=== PATIENT | female | born 2000 | race Caucasian/White ===

== ENCOUNTER → 2021-02-25 | Outpatient (CLI) | payer BC, SELFPAY ==
[2021-02-25 14:32] VITALS: BMI 27.3
[2021-02-25 18:45] LABS: Chlamydia Trachomatis by PCR Negative (Negative); Neisserai gonorrhoeae by PCR Negative (Negative); Probe Check PASS; Sample Adequacy Control PASS; Specimen Processing Control PASS
== END | disposition home or self-care (01) ==
LOC: LABSPEC 16:31
PROVIDERS: PCP Pediatrics; Referring Provider Nurse Practitioner Women's Health; Visit Provider Nurse Practitioner Women's Health
DX: N93.0 Postcoital and contact bleeding (principal)
CPT/HCPCS: 87491; 87591

== ENCOUNTER → 2021-03-11 | Outpatient (CLI) | payer OTHER, SELFPAY ==
[2022-03-13 22:07] LABS: Chlamydia By Nucleic Acid AMP Negative (Negative)
[2022-03-13 23:00] LABS: Gonococcus By Nucleic Acid AMP Negative (Negative)
[2022-03-18 14:56] LABS: HPV Reflexed? NOT INDICATED
== END | disposition home or self-care (01) ==
LOC: LABSPEC 03-12 06:26
PROVIDERS: PCP Pediatrics; Referring Provider Nurse Practitioner Women's Health; Visit Provider Nurse Practitioner Women's Health
DX: Z11.3 Encounter for screening for infections with a predominantly sexual mode of transmission (principal); Z12.4 Encounter for screening for malignant neoplasm of cervix
CPT/HCPCS: 87491; 87591; 88175; G0145

== ENCOUNTER → 2025-07-19 | Outpatient (CLI) | payer OTHER, SELFPAY ==
--- OUTSIDE RECORDS SUMMARY | 2025-07-19 20:16 | XMS RPT_ITS | CCD ---
Author Organization [facility] [employer] Care Team Providers Care School Clerk Name Role Phone ROSALINDA THAPA Attending Unavailable REFERRED, SELF Referring Unavailable LARISAAGERARDEN Primary Care Unavaila ble ROSALINDA THAPA Attending Unavailable REFERRED, SELF Referring Unavailable ARDEN VIERA Primary Care Unavaila ble MAXIMILIANO, ARDEN Attending Unavaila ble REFERRED, SELF Referring Unavailable MAXIMILIANO, ARDEN Primary Care Unavaila Dr. Susie Sandoval Primary Care Provider Dr. Susie Pascal Referring Provider [phone] Jorge BLUEPRINT ASSEMBLER, RAHUL-Aj Agosto Attending Provider Jorge BLUEPRINT ASSEMBLER, Triny Attending Unavailable Susie Pascal Referring Unavailable Susie Pascal Primary Care Unavailable Lino [place] ROUTEMANRadha PIMENTEL Primary Care Provider RADHA IBARRA Attending Unavailable Radha Ibarra Primary Care Provider [phone] RADHA IBARRA Primary Care Unavailable MANUELA GRANT Attending Unavailable [place] ROUTEMAN-Radha MEEHAN Primary Care Provi jose daniel RADHA IBARRA Primary Care Unavailable JEAN MARIE, TEJ P Referring Unavailable RADHA IBARRA Primary Care Unavailable JEAN MARIE, TEJ P Referring Unavailable RADHA IBARRA Primary Care Unavailable JEAN MARIE, TEJ P Referring Unavailable RADHA IBARRA Primary Care Unavailable JEAN MARIE, TEJ P Referring Unavailable RADHA IBARRA Primary Care Unavailable IBARRARADHA PARKER Primary Care Unavailable JEAN MARIE, TEJ P Attending Unavailable JEAN MARIE, TEJ P Attending Unavailable RADHA IBARRA Primary Care Unavailable JEAN MARIE, TEJ P Attending Unavailable RADHA IBARRA Primary Care Unavailable JEAN MARIE, TEJ P Attending Unavailable RADHA IBARRA Primary Care Unavailable JEAN MARIE, TEJ P Attending Unavailable IBARRA, RADHA YANETH Primary Care Unavailable Gwyn HERCULES, Dr. Richards Primary Care Provider Dr. Susie Pascal MD Referring Provider Suzanne Hi Attending Provider [phone] Allergies Allergy Classification Reported Allergen(s) Allergy Type Date of Onset Reaction(s) Facility (1 source) Gluten Drug allergy (disorder) 4 [facility] Repository (2 sources) ALLERGIES NOT ON FILE; Translations: [ALLERGIES NOT ON FILE] Propensity to adverse reactions (disorder) [facility] Repository (1 source) Wheat gluten extract Drug Allergy 5 Other [facility] Comment on above: HEADACHE Medications Current Medications Medication Drug Class(es) Dates Sig (Normalized) Sig (Original) ascorbic acid 500 mg oral tablet (1 source) Vitamin C Start: 10-31-2024 take 1 tablet by mouth once daily ascorbic acid, vitamin C, (VITAMIN C) 500 mg tablet Take 1 tablet by mouth once daily. 10/31/2024 Active cholecalciferol 0.025 mg chewable tablet (3 sources) Vitamin D Start: 10-31-2024 take 1 tablet by mouth once daily Cholecalciferol, Vitamin D3, (VITAMIN D-3) 25 mcg (1,000 unit) chew Take 1 tablet by mouth once daily. 10/31/2024 Active Start: 03-11-2022 End: 07-19-2025 take 1 capsule by mouth once daily Cholecalciferol (Vitamin D3) 50 mcg (2,000 unit) capsule Discontinued 50 ug PO DAILY March 11, 2022 12:00am July 19, 2025 3:45pm Ptgbiyc-Ftuzbij-Ekeoahdkxx (1 source) Start: 03-11-2022 Mehbrhc-Cahwynj-Ojhotcmkkt Active CAP PO March 11, 2022 12:00am ondansetron 4 mg disintegrating oral tablet (2 sources) Serotonin-3 Receptor Antagonist Start: 11-17-2024 take 1 tablet by mouth three times daily as needed for nausea ondansetron (ZOFRAN-ODT) 4 MG disintegrating tablet Take 1 tablet by mouth 3 times daily as needed for Nausea or Vomiting 21 tablet 11/17/2024 Active Start: 11-17-2024 End: 11-17-2024 4 mg, IntraVENous, ONCE, 1 d ose, On Wed11/17/24 at 0254 saccharomyces boulardii 250 mg oral capsule (2 sources) Start: 03-11-2022 take 1 capsule by mouth twice daily Saccharomyces Boulardii (Daily Probiotic (S. Boulardii)) 250 mg capsule Active 250 mg PO TWICE A DAY March 11, 2022 12:00am Completed/Discontinued Medications Medication Drug Class(es) Dates Sig (Normalized) Sig (Original) Dietary Supplement capsule (1 source) Start: 04-27-2023 End: 07-19-2025 Dietary Supplement capsule Discontinued NMA PO April 27, 2023 12:00am July 19, 2025 3:45pm anxiety and depresson Norethindrone-E.Est radiol-Iron (6 sources) Estrogen Start: 12-23-2020 End: 02-25-2021 Norethindrone-E.Estr adiol-Iron (Mibelas 24 Fe) 1 mg-20 mcg(24) /75 mg (4) tablet,chewable Discontinued 1 {tbl} PO DAILY 84 1 December 23, 2020 2:45pm February 25, 2021 2:38pm Start: 12-23-2020 End: 02-25-2021 take 1 tablet by mouth once daily Norethindrone-E.Estradiol-Iron (Mibelas 24 Fe) 1 mg-20 mcg(24) /75 mg (4) tablet,chewable Discontinued 1 TABLET PO DAILY 84 December 23, 2020 2:45pm February 25, 2021 2:38pm Start: 12-05-2019 End: 12-23-2020 Norethindrone-E.Estradiol-Ir on (Mibelas 24 Fe) 1 mg-20 mcg(24) /75 mg (4) tablet,chewable Discontinued 1 {tbl} PO DAILY 84 4 December 05, 2019 12:27pm December 23, 2020 2:46pm Start: 12-05-2019 End: 12-23-2020 take 1 tablet by mouth once daily Norethindrone-E.Estradiol-Iron (Mibelas 24 Fe) 1 mg-20 mcg(24) /75 mg (4) tablet,chewable Discontinued 1 TABLET PO DAILY 84 December 05, 2019 12:27pm December 23, 2020 2:46pm Start: 04-11-2019 End: 12-05-2019 Norethindrone-E.Estradiol-Ir on (Mibelas 24 Fe) 1 mg-20 mcg(24) /75 mg (4) tablet,chewable Discontinued 1 {tbl} PO DAILY 18 11April 11, 2019 12:00am December 05, 2019 12:28pm Start: 04-11-2019 End: 12-05-2019 take 1 tablet by mouth once daily Norethindrone-E.Estradiol-Iron (Mibelas 24 Fe) 1 mg-20 mcg(24) /75 mg (4) tablet,chewable Discontinued 1 TABLET PO DAILY April 11, 2019 12:00am December 05, 2019 12:28pm Levonorgestrel-Ethinyl Estrad (12 sources) Progestin, Estrogen, Progestin-containing Intrauterine Device Start: 06-18-2025 End: 07-19-2025 Levonorgestrel-Ethinyl Estrad 0.15-0.03 mg tablet Discontinued 1 {tbl} PO DAILY 84 June 18, 2025 8:01am July 19, 2025 3:45pm Start: 08-29-2024 take 1 tablet by mouth once AL , 28, 0.15-0.03 mg per tab Take 1 tablet by mouth every afternoon. 08/29/2024 Active Start: 06-07-2024 End: 06-18-2025 Levonorgestrel-Ethinyl Estra d 0.15-0.03 mg tablet Discontinued 1 {tbl} PO DAILY 84 4 June 07, 2024 2:53pm June 18, 2025 8:02am Start: 04-27-2023 End: 06-07-2024 Levonorgestrel-Ethinyl Estra d 0.15-0.03 mg tablet Discontinued 1 {tbl} PO DAILY 84 4 April 27, 2023 2:59pm June 07, 2024 2:53pm Start: 03-21-2023 End: 04-27-2023 Levonorgestrel-Ethinyl Estra d 0.15-0.03 mg tablet Discontinued 1 {tbl} PO DAILY 84 0 March 21, 2023 3:15pm April 27, 2023 2:59pm Start: 03-19-2023 End: 03-21-2023 Levonorgestrel-Ethinyl Estra d 0.15-0.03 mg tablet Discontinued 1 {tbl} PO DAILY 84 4 March 19, 2023 9:45am March 21, 2023 3:16pm Start: 03-11-2022 End: 03-19-2023 Levonorgestrel-Ethinyl Estra d 0.15-0.03 mg tablet Discontinued 1 {tbl} PO DAILY 84 March 11, 2022 1:58pm March 19, 2023 9:45am Start: 03-11-2022 take 1 tablet by david th once daily Levonorgestrel-Ethinyl Estrad Active 1 TABLET PO DAILY 84 March 11, 2022 1:58pm Start: 01-23-2022 End: 03-11-2022 Levonorgestrel-Ethinyl Estra d 0.15-0.03 mg tablet Discontinued 1 {tbl} PO DAILY 84 January 23, 2022 3:40pm March 11, 2022 1:59pm Start: 01-23-2022 End: 03-11-2022 take 1 tablet by mouth once daily Levonorgestrel-Ethinyl Estrad Discontinued 1 TABLET PO DAILY 84 January 23, 2022 3:40pm March 11, 2022 1:59pm Start: 02-25-2021 End: 01-23-2022 Levonorgestrel-Ethinyl Estra d 0.15-0.03 mg tablet Discontinued 1 {tbl} PO DAILY 84 February 25, 2021 12:00am January 23, 2022 3:40pm Start: 02-25-2021 End: 01-23-2022 take 1 tablet by mouth once daily Levonorgestrel-Ethinyl Estrad Discontinued 1 TABLET PO DAILY 84 February 25, 2021 12:00am January 23, 2022 3:40pm Risruiw-Toeaqoh-Ttbvcemrwv capsule (1 source) Start: 03-11-2022 End: 07-19-2025 Sknmsyr-Lmmtldw-Mtuuqogfzc capsule Discontinued NMA PO March 11, 2022 12:00am July 19, 2025 3:45pm iopamidol (ISOVUE-370) 76 % injection 75 mL (1 source) Start: 11-17-2024 End: 11-17-2024 take 1 dose intravenousl y once 75 mL, IntraVENous, IMG ONCE PRN, 1 dose, Starting on Wed11/17/24 at 0346, Until Wed11/17/24 at 0351, Other vitamin b12 1 mg oral capsule (2 sources) Vitamin B12 Start: 03-11-2022 End: 04-27-2023 take 1 capsule by mouth once daily Cyanocobalamin (Vitamin B-12) 1,000 mcg capsule Discontinued 1000 ug PO DAILY March 11, 2022 12:00am April 27, 2023 2:55pm Problems Active Problems Problem Classification Problem Date Documented Date Episodic/Chronic Allergic reactions (1 source) Propensity to adverse reactions to food; Translations: [Other adverse food reactions, not elsewhere classified, initial encounter] 10-31-2024 Episodic Anxiety disorders (1 source) Anxiety; Translations: [Anxiety disorder, unspecified] 10-31-2024 Chronic Fracture of lower limb (12 sources) Closed fracture of talus; Translations: [Displaced avulsion fracture (chip fracture) of right talus, initial encounter for closed fracture] Onset: 05-03-2025 04-19-2025 Episodic Immunizations and screening for infectious disease (2 sources) Contact with and (suspected) exposure to infections with a predominantly sexual mode of transmission; Translations: [Contact with or exposure to venereal diseases] Episodic Menstrual disorders (2 sources) Secondary oligomenorrhea; Translations: [Secondary oligomenorrhea] 04-11-2019 Chronic Comment on above: labs, recommend pill Other connective tissue disease (1 source) Pain in right foot; Translations: [Right foot pain] Onset: 06-29-2025 Episodic Other endocrine disorders (3 sources) Polycystic ovary syndrome; Translations: [Polycystic ovarian syndrome] 10-31-2024 Chronic Comment on above: ocp Other endocrine disorders (2 sources) Polycystic ovarian syndrome; Translations: [Polycystic ovaries] Onset: 06-07-2024 Chronic Other non-traumatic joint disorders (9 sources) Acute ankle pain; Translations: [Pain in right ankle and joints of right foot] 04-19-2025 Episodic Other non-traumatic joint disorders (4 sources) Pain in right ankle and joints of right foot; Translations: [Pain in right ankle and joints of right foot] Onset: 04-19-2025 Episodic Other skin disorders (2 sources) Hirsutism; Translations: [Hirsutism] 06-07-2024 Episodic Comment on above: ocp; seeing derm Other skin disorders (2 sources) Hirsutism; Translations: [Hirsutism] Onset: 06-07-2024 Episodic Sprains and strains (7 sources) Sprain of right ankle; Translations: [Sprain of unspecified ligament of right ankle, initial encounter] Onset: 06-29-2025 04-19-2025 Episodic Syncope (2 sources) Vasovagal syncope; Translations: [Syncope and collapse] Onset: 11-17-2024 11-17-2024 Episodic Past or Other Problems Problem Classification Problem Date Documented Da te Episodic/Chronic Unclassified (1 source) Sprain of right ankle 07-13-2025 Results Test Name Value Interpretation Reference Range Facility ED NOTEon 06-29-2025 ED NOTE HNO ID: [id number] Author: ERNESTO DELGADILLO RN Service: ? Author Type: Registered Nurse Type: ED Notes Filed: 06/29/2025 01:43 Note Text: Ankle aircast applied. Crutches provided, verbalized understanding of use. Aware prescription for Naproxen sent to documented preferred pharmacy. Encouraged to f/u with Orthopedics, scheduling staff to call in a.m. [facility] ED PROV NOTEon 06-29-2025 ED PROV NOTE HNO ID: [id number] Author: RADHA GUERRA APRN.CNP Service: Emergency Medicine Author Type: Nurse Practitioner Type: ED Provider Notes Filed: 06/29/2025 03:10 Note Text: ED Provider Note Patient Name: Radha Hess : 2000 SERVICE DATE: 06/28/25 History Patient presents with: Ankle Injury: Right; sprained ankle in March and was walking down the stairs when her flip flop got caught and she twisted her ankle Patient is a 25-year-old female with no significant past medical history presenting for evaluation of right ankle injury. Patient states that she was walking on the stairs when her flip-flop got caught changes to her right ankle. She denies any fall, denies any her head, denies any loss of consciousness. She states it is the same ankle that she sprained back in March. She denies any numbness or tingling in the extremity, does state that she is able to ambulate, does painful to bear weight. She denies any difficulty with range of motion, does report pain with movement. She denies any other injury related to this incident. History provided by: Patient fourth officer used: No History reviewed. No pertinent past medical history. History reviewed. No pertinent surgical history. No family history on file. Social History Tobacco Use Smoking status: Never Smokeless tobacco: Not on file Substance and Sexual Activity Alcohol use: Never Drug use: Never Sexual activity: Not on file ALLERGIES No Known Allergies Review of Systems Constitutional: Negative for chills, fatigue and fever. HENT: Negative for congestion. Respiratory: Negative for chest tightness and shortness of breath. Cardiovascular: Negative for chest pain. Gastrointestinal: Negative for abdominal pain, constipation, diarrhea, nausea and vomiting. Endocrine: Negative for cold intolerance and heat intolerance. Genitourinary: Negative for difficulty urinating, hematuria and urgency. Musculoskeletal: Positive for arthralgias. Negative for back pain, gait problem, joint swelling, myalgias, neck pain and neck stiffness. Skin: Negative for color change and rash. Neurological: Negative for dizziness, weakness and headaches. Physical Exam Vitals BP Pulse Temp Temp src Resp SpO2 Weight Height 06/28/25 2137 06/28/257 06/28/25213606/28/25213606/28/25213606/28/25213606/28/252136 -- 145/95 (!) 109 36.6 ?C (97.9 ?F) Temporal 18 100 % 69.4 kg (153 lb) Physical Exam Vitals and nursing note reviewed. Constitutional: General: She is not in acute distress. Appearance: She is not ill-appearing or toxic-appearing. Cardiovascular: Rate and Rhythm: Normal rate and regular rhythm. Pulses: Normal pulses. Dorsalis pedis pulses are 2+ on the right side. Posterior tibial pulses are 2+ on the right side. Heart sounds: Normal heart sounds. No murmur heard. No friction rub. No gallop. Pulmonary: Effort: Pulmonary effort is normal. No respiratory distress. Breath sounds: Normal breath sounds. No stridor. No wheezing, rhonchi or rales. Chest: Chest wall: No tenderness. Musculoskeletal: General: Tenderness present. No swelling, deformity or signs of injury. Normal range of motion. Right lower leg: No edema. Left lower leg: No edema. Right foot: Normal range of motion. Feet: Feet: Right foot: Skin integrity: Skin integrity normal. Comments: There is soft tissue swelling noted to the lateral malleolus, patient does have full range of motion, but does report some pain with flexion. MSPs are intact. Skin: General: Skin is warm and dry. Capillary Refill: Capillary refill takes less than 2 seconds. Neurological: Mental Status: She is alert and oriented to person, place, and time. Diagnostic Testing ED Labs Ordered and Reviewed - No data to display Procedures ED Course / Clinical Impression Clinical Impressions as of 06/29/25 0310 Right ankle sprain Right foot pain MDM / Disposition / Plan Patient is a 25-year-old female presenting for evaluation of right ankle injury. On exam, patient is in no acute distress and is nontoxic-appearing. There is soft tissue swelling noted to the lateral malleolus, patient does have full range of motion, but does report some pain with flexion. MSPs are intact. X-ray of the right foot and ankle negative for acute osseous abnormality. Given patient's soft tissue swelling, decision is made to place patient in Aircast with crutches. I did give her naproxen in the ED, prescription given. I did also advise her to follow-up with orthopedics. At this time, I do feel she is safe to be discharged home. She is agreeable to plan of care for discharge and verbalized understanding. History and Record Review External record(s) reviewed: prior outpatient record. Findings from review of outpatient records: 05/31/25 office visit with ortho for ankle sprain/avulsion Differential Diagnoses - right foot sprain, righ (more content not included)... Normal [facility] XR ANKLE RIGHT 3+ VIEWSon XR ANKLE RIGHT 3+ VIEWS Interpreted By: Alonzo Mancera, STUDY: XR ANKLE RIGHT 3+ VIEWS INDICATION: Signs/Symptoms:pain. COMPARISON: May 03, 2025 ACCESSION NUMBER(S): [id number] ORDERING CLINICIAN: TEJ AJ FINDINGS: Lateral malleolar soft tissue swelling. No evidence of right ankle fracture or malalignment. IMPRESSION: Lateral soft tissue swelling without acute osseous abnormality right ankle. Signed by: Alonzo Mancera 06/30/2025 10:42 AM Dictation workstation: [id number] [facility] ED NOTEon 06-28-2025 ED NOTE HNO ID: [id number] Author: MW BARROW, CHUYITA Service: ? 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 Pt was walking down stairs when her flip flop got caught on the last stair and her ankle twisted. Pt sprained ankle back in March. Right ankle is swollen and pt has limited movement. Pt reports pain going up the lateral side of her right ankle. [facility] ED Triage Noteon 06-28-2025 ED Triage Note HNO ID: [id number] Author: PAULINA WHITE MD Service: Emergency Medicine Author Type: Physician Type: ED Triage Notes Filed: 06/28/2025 21:42 Note Text: ED INTAKE NOTE Patient Name: Radha Hess Service Date: 06/28/25 BRIEF HPI: This is a 25 year old female who presents to the ED with: Ankle Injury Right; sprained ankle in March and was walking down the stairs when her flip flop got caught and she twisted her ankle BRIEF EXAM: NAD Awake and Alert Non labored breathing TTP lateral INITIAL WORKUP AND DECISION MAKING: Orders Placed This Encounter XR ANKLE GENERAL 3V AP/LAT/OBL RIGHT XR FOOT GENERAL 3V AP/LAT/OBL RIGHT Provider examination performed via virtual platform with assistance from bedside clinician. SIGNATURE: Paulina White MD [facility] XR ANKLE 3V AP/LAT/OBL RTon 06-28-2025 XR ANKLE 3V AP/LAT/OBL RT * * *Final Report* * * DATE OF EXAM: Jun 28 2025 9:58PM [id number] - XR ANKLE 3V AP/LAT/OBL RT / PROCEDURE REASON: Ankle pain, no prior imaging * * * * Physician Interpretation * * * * EXAM: XR ANKLE 3V AP/LAT/OBL RT, XR FOOT 3V AP/LAT/OBL RT HISTORY: Pain after rolling ankle, swelling COMPARISON: None available FINDINGS: Swelling over the lateral malleolus. No fracture, dislocation, or significant degenerative change. Anatomic ankle mortise. IMPRESSION: Lateral ankle swelling without acute osseous abnormality right ankle or foot. Stucco Plasterer: [facility] Transcribe Date/Time: Jun 28 2025 10:56P Dictated by : JAI LEE MD This examination was interpreted and the report reviewed and electronically signed by: JAI LEE MD on Jun 28 2025 10:57PM EST [id number] [facility] XR FOOT 3V AP/LAT/OBL RTon 0 06-28-2025 XR FOOT 3V AP/LAT/OBL RT * * *Final Report* * * DATE OF EXAM: Jun 28 2025 9:58PM [id number] - XR FOOT 3V AP/LAT/OBL RT / PROCEDURE REASON: Foot trauma, no prior imaging * * * * Physician Interpretation * * * * EXAM: XR ANKLE 3V AP/LAT/OBL RT, XR FOOT 3V AP/LAT/OBL RT HISTORY: Pain after rolling ankle, swelling COMPARISON: None available FINDINGS: Swelling over the lateral malleolus. No fracture, dislocation, or significant degenerative change. Anatomic ankle mortise. IMPRESSION: Lateral ankle swelling without acute osseous abnormality right ankle or foot. Stucco Plasterer: [facility] Transcribe Date/Time: Jun 28 2025 10:56P Dictated by : JAI LEE MD This examination was interpreted and the report reviewed and electronically signed by: JAI LEE MD on Jun 28 2025 10:57PM EST [id number] [facility] XR ANKLE RIGHT 3+ VIEWSon XR ANKLE RIGHT 3+ VIEWS Interpreted By: Virgil Mcgowan, STUDY: XR ANKLE RIGHT 3+ VIEWS; ; 05/03/2025 1:28 pm INDICATION: Signs/Symptoms:pain. ,S92.151A Displaced avulsion fracture (chip fracture) of right talus, initial encounter for closed fracture COMPARISON: 04/19/2025. ACCESSION NUMBER(S): [id number] ORDERING CLINICIAN: TEJ AJ FINDINGS: Right ankle, three views There is no fracture. There is no dislocation. There are no degenerative changes. There is no lytic or sclerotic lesion. There is no soft tissue abnormality seen. IMPRESSION: Normal radiographs of the right ankle MACRO: None Signed by: Virgil Mcgowan 05/04/2025 6:18 PM Dictation workstation: [id number] [facility] XR ANKLE RIGHT 3+ VIEWSon XR ANKLE RIGHT 3+ VIEWS Interpreted By: Alonzo Mancera, STUDY: XR FOOT RIGHT 3+ VIEWS; XR ANKLE RIGHT 3+ VIEWS INDICATION: Signs/Symptoms:pain. COMPARISON: None ACCESSION NUMBER(S): [id number]; [id number] ORDERING CLINICIAN: TEJ AJ FINDINGS: Lateral malleolar soft tissue swelling right distal fibula. No other osseous, articular, or soft tissue abnormality identified. IMPRESSION: Right lateral soft tissue swelling. No evidence of fracture right foot or ankle. Signed by: Alonzo Mancera 04/20/2025 6:19 PM Dictation workstation: [id number] [facility] XR FOOT RIGHT 3+ VIEWSon XR FOOT RIGHT 3+ VIEWS Interpreted By: Alonzo Mancera, STUDY: XR FOOT RIGHT 3+ VIEWS; XR ANKLE RIGHT 3+ VIEWS INDICATION: Signs/Symptoms:pain. COMPARISON: None ACCESSION NUMBER(S): [id number]; [id number] ORDERING CLINICIAN: TEJ AJ FINDINGS: Lateral malleolar soft tissue swelling right distal fibula. No other osseous, articular, or soft tissue abnormality identified. IMPRESSION: Right lateral soft tissue swelling. No evidence of fracture right foot or ankle. Signed by: Alonzo Mancera 04/20/2025 6:19 PM Dictation workstation: [id number] [facility] Basic Metabolic Panelon 12-2 Anion gap [Moles/Vol] 12 mmol/L Normal 9-15 [facility] Comment on above: Performed By: #### B MP #### [facility] [address] [place] [address] Calcium [Mass/Vol] 8.9 mg/dL Normal 8.5-9.9 [facility] Comment on above: Performed By: #### B MP #### [facility] [address] [place] [address] Chloride [Moles/Vol] 103 mmol/L Normal 95-107 [facility] Comment on above: Performed By: #### B MP #### [facility] [address] [place] [address] CO2 [Moles/Vol] 22 mmol/L Normal 20-31 [facility] Comment on above: Performed By: #### B MP #### [facility] [address] [place] [address] Creatinine [Mass/Vol] 0.66 mg/dL Normal 0.50-0.90 [facility] Comment on above: Performed By: #### B MP #### [facility] [address] [place] [address] GFR >90.0 Normal >60 [facility] Comment on above: Result Comment: Jerry atric calculator link https://www.kidney.org/professionals/kdoqi/gfr_calculatorped Effective Aug 24, 2022 These results are not intended for use in patients <18 years of age. eGFR results are calculated without a race factor using the 2020 CKD-EPI equation. Careful clinical correlation is recommended, particularly when comparing to results calculated using previous equations. The CKD-EPI equation is less accurate in patients with extremes of muscle mass, extra-renal metabolism of creatinine, excessive creatinine ingestion, or following therapy that affects renal tubular secretion. Performed By: #### B MP #### [facility] [address] [place] [address] Glucose [Mass/Vol] 93 mg/dL Normal 70-99 [facility] Comment on above: Performed By: #### B MP #### [facility] [address] [place] [address] Potassium [Moles/Vol] 4.1 mmol/L Normal 3.4-4.9 [facility] Comment on above: Performed By: #### B MP #### [facility] [address] [place] [address] Sodium [Moles/Vol] 137 mmol/L Normal 135-144 [facility] Comment on above: Performed By: #### B MP #### [facility] [address] [place] [address] Urea nitrogen [Mass/Vol] 8 mg/dL Normal 6-20 [facility] Comment on above: Performed By: #### B #### [facility] [address] [place] [address] Basic metabolic 2000 panelon 11-17-2024 Calcium [Mass/Vol] 8.9 mg/dL 8.5 - 9.9 mg/dL [facility] Chloride [Moles/Vol] 103 mmol/L [facility] CO2 [Moles/Vol] 22 mmol/L [facility] Creatinine [Mass/Vol] 0.66 mg/dL 0.50 - 0.90 mg/dL [facility] GFR/1.73 sq M.predicted among non-blacks MDRD (S/P/Bld) [Vol rate/Area] 60 - PINF [facility] Comment on above: Pediatric calculator link https://www.kidney.org/professionals/kdoqi/gfr_calculatorped Effective Aug 24, 2022 These results are not intended for use in patients <18 years of age. eGFR results are calculated without a race factor using the 2020 CKD-EPI equation. Careful clinical correlation is recommended, particularly when comparing to results calculated using previous equations. The CKD-EPI equation is less accurate in patients with extremes of muscle mass, extra-renal metabolism of creatinine, excessive creatinine ingestion, or following therapy that affects renal tubular secretion. Glucose [Mass/Vol] 93 mg/dL 70 - 99 mg/dL [facility] Potassium [Moles/Vol] 4.1 mmol/L [facility] Sodium [Moles/Vol] 137 mmol/L [facility] Urea nitrogen [Mass/Vol] 8 mg/dL 6 - 20 mg/dL [facility] CBC W Auto Differential pane l (Bld)on 11-17-2024 Interpretation and review of laboratory results Abnormal [facility] MCHC (RBC) [Mass/Vol] 32.9 % Low 33.0 - 37.0 % [facility] Segmented neutrophils/100 WBC (Bld) 79.6 % [facility] CBC With Platelet and Differ entialon 11-17-2024 Basophils (Bld) [#/Vol] 0.1 10*3/uL Normal 0.0-0.2 [facility] Comment on above: Performed By: #### C BCWD #### [facility] [address] [place] [address] Basophils/100 WBC (Bld) 0.3 % Normal [facility] Comment on above: Performed By: #### C BCWD #### [facility] [address] [place] [address] Eosinophils (Bld) [#/Vol] 0.3 10*3/uL Normal 0.0-0.7 [facility] Comment on above: Performed By: #### C BCWD #### [facility] [address] [place] [address] Eosinophils/100 WBC (Bld) 1.6 % Normal [facility] Comment on above: Performed By: #### C BCWD #### [facility] [address] [place] [address] Erythrocyte distribution width (RBC) [Ratio] 13.3 % Normal 11.5-14.5 [facility] Comment on above: Performed By: #### C BCWD #### [facility] [address] [place] [address] Hematocrit (Bld) [Volume fraction] 42.5 % Normal 37.0-47.0 [facility] Comment on above: Performed By: #### C BCWD #### [facility] [address] [place] [address] Hemoglobin (Bld) [Mass/Vol] 14.0 g/dL Normal 12.0-16.0 [facility] Comment on above: Performed By: #### C BCWD #### [facility] [address] [place] [address] Lymphocytes (Bld) [#/Vol] 1.8 10*3/uL Normal 1.0-4.8 [facility] Comment on above: Performed By: #### C BCWD #### [facility] [address] [place] [address] Lymphocytes/100 WBC (Bld) 11.9 % Normal [facility] Comment on above: Performed By: #### C BCWD #### [facility] [address] [place] [address] MCH (RBC) [Entitic mass] 27.3 pg Normal 27.0-31.3 [facility] Comment on above: Performed By: #### C BCWD #### [facility] [address] [place] [address] MCHC 32.9 % Low 33.0-37.0 [facility] Comment on above: Performed By: #### C BCWD #### [facility] [address] [place] [address] MCV (RBC) [Entitic vol] 83.0 fL Normal 79.4-94.8 [facility] Comment on above: Performed By: #### C BCWD #### [facility] [address] [place] [address] Monocytes (Bld) [#/Vol] 1.0 10*3/uL Critically high 0.2-0.8 [facility] Comment on above: Performed By: #### C BCWD #### [facility] [address] [place] [address] Monocytes/100 WBC (Bld) 6.2 % Normal [facility] Comment on above: Performed By: #### C BCWD #### [facility] [address] [place] [address] Neutrophils (Bld) [#/Vol] 12.2 10*3/uL Critically high 1.4-6.5 [facility] Comment on above: Performed By: #### C BCWD #### [facility] [address] [place] [address] Neutrophils/100 WBC (Bld) 79.6 % Normal [facility] Comment on above: Performed By: #### C BCWD #### [facility] [address] [place] [address] Platelets (Bld) [#/Vol] 322 10*3/uL Normal 130-400 [facility] Comment on above: Performed By: #### C BCWD #### [facility] [address] [place] [address] RBC (Bld) [#/Vol] 5.12 10*6/uL Normal 4.20-5.40 [facility] Comment on above: Performed By: #### C BCWD #### [facility] [address] [place] [address] WBC (Bld) [#/Vol] 15.3 10*3/uL Critically high 4.8-10.8 [facility] Comment on above: Performed By: #### C BCWD #### [facility] [address] [place] [address] CT ABDOMEN PELVIS W IV CONTR Ankita 11-17-2024 CT ABDOMEN PELVIS W IV CONTRAST EXAMINATION: CT OF THE ABDOMEN AND PELVIS WITH CONTRAST 11/17/2024 3:48 am TECHNIQUE: CT of the abdomen and pelvis was performed with the administration of intravenous contrast. Multiplanar reformatted images are provided for review. Automated exposure control, iterative reconstruction, and/or weight based adjustment of the mA/kV was utilized to reduce the radiation dose to as low as reasonably achievable. COMPARISON: None. HISTORY: ORDERING SYSTEM PROVIDED HISTORY: Severe cramping, intermittent today, syncopal episode with low blood pressure TECHNOLOGIST PROVIDED HISTORY: Reason for exam:->Severe cramping, intermittent today, syncopal episode with low blood pressure Additional Contrast?->None Decision Support Exception - unselect if not a suspected or confirmed emergency medical condition->Emergency Medical Condition (MA) What reading provider will be dictating this exam?->CRC FINDINGS: Lower Chest: No infiltrate or effusion. Organs: Liver, gallbladder, biliary tree, bilateral adrenal glands, bilateral kidneys, spleen and pancreas are normal. GI/Bowel: No ileus or obstruction. No inflammatory bowel process. Appendix not visible. No pericecal inflammatory change to suggest occult appendicitis. Pelvis: No adnexal mass or significant pelvic fluid. Peritoneum/Retroperito neum: Negative. Bones/Soft Tissues: No acute osseous or body wall soft tissue abnormalities. IMPRESSION: No acute intra-abdominal or pelvic process. Interpreted by: Bhavana Guidry MD Signed by: Bhavana Guidry MD 11/17/24 Final result Normal [facility] CT Abdomen and Pelvis W cont rast Ludy 11-17-2024 No acute intra-abdominal or pelvic process. [facility] RADIOLOGY EXAMINATION: CT OF THE ABDOMEN AND PELVIS WITH CONTRAST 11/17/2024 3:48 am TECHNIQUE: CT of the abdomen and pelvis was performed with the administration of intravenous contrast. Multiplanar reformatted images are provided for review. Automated exposure control, iterative reconstruction, and/or weight based adjustment of the mA/kV was utilized to reduce the radiation dose to as low as reasonably achievable. COMPARISON: None. HISTORY: ORDERING SYSTEM PROVIDED HISTORY: Severe cramping, intermittent today, syncopal episode with low blood pressure TECHNOLOGIST PROVIDED HISTORY: Reason for exam:->Severe cramping, intermittent today, syncopal episode with low blood pressure Additional Contrast?->None Decision Support Exception - unselect if not a suspected or confirmed emergency medical condition->Emergency Medical Condition (MA) What reading provider will be dictating this exam?->CRC FINDINGS: Lower Chest: No infiltrate or effusion. Organs: Liver, gallbladder, biliary tree, bilateral adrenal glands, bilateral kidneys, spleen and pancreas are normal. GI/Bowel: No ileus or obstruction. No inflammatory bowel process. Appendix not visible. No pericecal inflammatory change to suggest occult appendicitis. Pelvis: No adnexal mass or significant pelvic fluid. Peritoneum/Retroperito neum: Negative. Bones/Soft Tissues: No acute osseous or body wall soft tissue abnormalities. [facility] RADIOLOG[facility] Bhavana Guidry MD - 11/17/2024 EXAMINATION: CT OF THE ABDOMEN AND PELVIS WITH CONTRAST 11/17/2024 3:48 am TECHNIQUE: CT of the abdomen and pelvis was performed with the administration of intravenous contrast. Multiplanar reformatted images are provided for review. Automated exposure control, iterative reconstruction, and/or weight based adjustment of the mA/kV was utilized to reduce the radiation dose to as low as reasonably achievable. COMPARISON: None. HISTORY: ORDERING SYSTEM PROVIDED HISTORY: Severe cramping, intermittent today, syncopal episode with low blood pressure TECHNOLOGIST PROVIDED HISTORY: Reason for exam:->Severe cramping, intermittent today, syncopal episode with low blood pressure Additional Contrast?->None Decision Support Exception - unselect if not a suspected or confirmed emergency medical condition->Emergency Medical Condition ([place]) What reading provider will be dictating this exam?->CRC FINDINGS: Lower Chest: No infiltrate or effusion. Organs: Liver, gallbladder, biliary tree, bilateral adrenal glands, bilateral kidneys, spleen and pancreas are normal. GI/Bowel: No ileus or obstruction. No inflammatory bowel process. Appendix not visible. No pericecal inflammatory change to suggest occult appendicitis. Pelvis: No adnexal mass or significant pelvic fluid. Peritoneum/Retroperito neum: Negative. Bones/Soft Tissues: No acute osseous or body wall soft tissue abnormalities. IMPRESSION: No acute intra-abdominal or pelvic process. [facility] Radiology Study observation (narrative) [facility] CT Abdomen and Pelvis W cont rast IVOrdered By: Bhavana Guidry on 11-17-2024 [facility] Work Phone: High Sensitivity Troponin To n 11-17-2024 High Sensitivity Troponin T <6 Normal 0-19 [facility] Comment on above: Result Comment: High Sensitivity Troponin values cannot be compared with other Troponin methodologies. Performed By: #### T RP5 #### [facility] [address] [facility] [id number] Lactic Acidon 11-17-2024 Lactate (BldV) [Moles/Vol] 1.2 mmol/L 0.5 - 2.2 mmol/L [facility] Lactate [Moles/Vol] 1.2 mmol/L Normal 0.5-2.2 [facility] Comment on above: Performed By: #### L ACID #### [facility] [address] [facility] [address] No Panel Informationon 11-17 [facility] Interpretation and review of laboratory results Normal [facility] POC Urine Qualon 1 01-18-2024 Beta HCG ( test) Ql (U) Negative Negative [facility] Lot Number 0 [facility] Negative QC Pass/Fail Pass [facility] Positive QC Pass/Fail Pass [facility] POCT CREATININEon 11-17-2024 POC CREATININE WHOLE BLOOD 0.8 [facility] POCT Glucoseon 11-17-2024 Glucose [Mass/Vol] 80 mg/dL 70 - 99 mg/dl [facility] Performed on ACCU-CHEK [facility] Glucose [Mass/Vol] 80 mg/dL [facility] Glucose [Mass/Vol] 80 mg/dL Normal 70-99 [facility] Comment on above: Performed By: #### P GLU #### [facility] [address] [place] [address] POC Performed on ACCU-CHEK Normal [facility] Comment on above: Performed By: #### P GLU #### [facility] [address] [place] [address] POCT Venouson 11-17-2024 Creatinine [Mass/Vol] 0.8 mg/dL 0.6 - 1.2 mg/dL [facility] GFR/1.73 sq M.predicted among non-blacks MDRD (S/P/Bld) [Vol rate/Area] 60 - PINF [facility] Comment on above: Pediatric calculator link https://www.kidney.org/professionals/kdoqi/gfr_calculatorped Effective Aug 24, 2022 These results are not intended for use in patients <18 years of age. eGFR results are calculated without a race factor using the 2020 CKD-EPI equation. Careful clinical correlation is recommended, particularly when comparing to results calculated using previous equations. The CKD-EPI equation is less accurate in patients with extremes of muscle mass, extra-renal metabolism of creatinine, excessive creatinine ingestion, or following therapy that affects renal tubular secretion. Performed on SEE BELOW [facility] Comment on above: Performed on POC Sample Type JUAN DANIEL [facility] Creatinine [Mass/Vol] 0.8 mg/dL Normal 0.6-1.2 [facility] Comment on above: Performed By: #### P JUAN DANIEL #### [facility] [address] [place] [address] GFR >90 Normal >60 [facility] Comment on above: Result Comment: Jerry estesc calculator link https://www.kidney.org/professionals/kdoqi/gfr_calculatorped Effective Aug 24, 2022 These results are not intended for use in patients <18 years of age. eGFR results are calculated without a race factor using the 2020 CKD-EPI equation. Careful clinical correlation is recommended, particularly when comparing to results calculated using previous equations. The CKD-EPI equation is less accurate in patients with extremes of muscle mass, extra-renal metabolism of creatinine, excessive creatinine ingestion, or following therapy that affects renal tubular secretion. Performed By: #### P JUAN DANIEL #### [facility] [address] [place] [address] POC Performed on SEE BELOW Normal [facility] Comment on above: Result Comment: Perf ormed on POC Performed By: #### P JUAN DANIEL #### [facility] [address] [place] [address] POC Sample Type JUAN DANIEL Normal [facility] Comment on above: Performed By: #### P JUAN DANIEL #### [facility] [address] [place] [address] Troponinon 11-17-2024 Troponin, High Sensitivity ng/L 0 - 19 ng/L [facility] Comment on above: High Sensitivity Tro ponin values cannot be compared with other Troponin methodologies. Urinalysis with Reflex to Cu ltureon 11-17-2024 Glucose Test strip (U) [Mass/Vol] Negative Negative mg/dL [facility] Interpretation and review of laboratory results Abnormal [facility] Ketones (U) [Mass/Vol] 15 mg/dL Abnormal Negative [facility] Inter[place]oss Protein (U) [Mass/Vol] Negative Negative mg/dL [facility] Urine Reflex to Culture Not Indicated [facility] Urobilinogen Qn (U) 0.2 NINF [facility] Urinalysis, reflex to cultur lupis 11-17-2024 Bilirubin Ql (U) Negative Normal [facility] [place] Comment on above: Performed By: #### U AR #### [facility] [address] [place] [address] Clarity (U) Clear Normal Clear [facility] Comment on above: Performed By: #### U AR #### [facility] [address] [place] [address] Color (U) Yellow Normal [facility] [facility] Comment on above: Performed By: #### U AR #### [facility] [address] [place] [address] Glucose Ql (U) Negative Normal Negative [facility] Comment on above: Performed By: #### U AR #### [facility] [address] [place] [address] Hemoglobin Ql (U) Negative Normal Negative [facility] Comment on above: Performed By: #### U AR #### [facility] [address] [place] [address] Ketones Ql (U) 15 mg/dL Abnormal Negative [facility] Comment on above: Performed By: #### U AR #### [facility] [address] [place] [address] Leukocyte esterase Test strip Ql (U) Negative Normal Negative [facility] Comment on above: Performed By: #### U AR #### [facility] [address] [place] [address] Nitrite Ql (U) Negative Normal Negative [place] [facility] [place] Comment on above: Performed By: #### U AR #### [facility] [address] [place] [address] pH (U) 6.0 [pH] Normal 5.0-9.0 [facility] Comment on above: Performed By: #### U AR #### [facility] [address] [place] [address] Protein Ql (U) Negative Normal Negative [facility] Comment on above: Performed By: #### U AR #### [facility] [address] [place] [address] Specific gravity (U) [Rel density] 1.012 Normal 1.005-1.03 [facility] Comment on above: Performed By: #### U AR #### [facility] [address] [place] [address] Urine Reflexed to Culture Not Indicated Normal [facility] Comment on above: Performed By: #### U AR #### [facility] [address] [place] [address] Urobilinogen Qn (U) 0.2 {David'U}/dL Normal < 2.0 [facility] Comment on above: Performed By: #### U AR #### [facility] [address] [place] [address] XR CHEST (2 VW)on 11-17-2024 XR CHEST (2 VW) EXAMINATION: TWO XRAY VIEWS OF THE CHEST 11/17/2024 4:04 am COMPARISON: None. HISTORY: ORDERING SYSTEM PROVIDED HISTORY: Syncope TECHNOLOGIST PROVIDED HISTORY: Reason for exam:->Syncope What reading provider will be dictating this exam?->CRC FINDINGS: Normal cardiomediastinal silhouette. Lungs clear. No pneumothorax or effusion. Body wall soft tissues unremarkable. Osseous thorax intact. IMPRESSION: No acute cardiopulmonary process. Interpreted by: Bhavana Guidry MD Signed by: Bhavana Guidry MD 11/17/24 Final result Normal [facility] XR Chest 2 Viewson No acute cardiopulmonary process. [facility] RAD[facility] EXAMINATION: TWO XRAY VIEWS OF THE CHEST 11/17/2024 4:04 am COMPARISON: None. HISTORY: ORDERING SYSTEM PROVIDED HISTORY: Syncope TECHNOLOGIST PROVIDED HISTORY: Reason for exam:->Syncope What reading provider will be dictating this exam?->CRC FINDINGS: Normal cardiomediastinal silhouette. Lungs clear. No pneumothorax or effusion. Body wall soft tissues unremarkable. Osseous thorax intact. [facility] RAD[facility]OLOG[facility] Bhavana Guidry MD - 11/17/2024 EXAMINATION: TWO XRAY VIEWS OF THE CHEST 11/17/2024 4:04 am COMPARISON: None. HISTORY: ORDERING SYSTEM PROVIDED HISTORY: Syncope TECHNOLOGIST PROVIDED HISTORY: Reason for exam:->Syncope What reading provider will be dictating this exam?->CRC FINDINGS: Normal cardiomediastinal silhouette. Lungs clear. No pneumothorax or effusion. Body wall soft tissues unremarkable. Osseous thorax intact. IMPRESSION: No acute cardiopulmonary process. [facility] Radiology Study observation (narrative) [facility] LENNOXOVdilia 10-31-2024 CNOV Office Visit (INMAVN ) RADHA BEGUM ([id number]) 1 F Date Time Provider Department 10/31/24 7:00 PM RADHA IBARRA INCAVN During your visit today, we recorded the following information about you: Pulse Blood pressure Weight Height 74/minute 135/82 74.7 kg 1.727 m Last Period 10/24/24 Radha Ibarra APRN.[employer] [employer] 10/31/2024 7:52 PM Signed Subjective HPI Radha Quintero Kel is a 24 year old female who presents to [facility] care. She denies any concerns today. She follows with [facility] in [place] for PCOS, on OCP. She sees naturopathic doctor in [place] for anxiety and food sensitivities, usually sees them every 6 months, overdue for follow up. Routine labs and Tdap vaccine due, declines flu and COVID-19 vaccines. Patient will sign release of records form to get outside records sent to update health maintenance. PAST MEDICAL HISTORY Diagnosis Date Anxiety Food sensitivity with gastrointestinal symptoms dairy, eggs, beef, and gluten are primary (also goat's milk) PCOS (polycystic ovarian syndrome) Tonsil stone Tonsillitis PAST SURGICAL HISTORY Procedure Laterality Date TOOTH EXTRACTION FAMILY HISTORY Problem Relation Age of Onset Hypertension Father No Known Problems Sister No Known Problems Sister No Known Problems Brother No Known Problems Maternal Grandmother Diabetes Maternal Grandfather type 2 Colon Cancer Paternal Grandmother Lung Cancer Paternal Grandfather mets to brain Colon Cancer Paternal Uncle Hypertension Paternal Aunt Social History Tobacco Use Smoking status: Never Smokeless tobacco: Never Vaping Use Vaping status: Former Substance Use Topics Alcohol use: Not Currently Drug use: Never Current Medications: ALTAVERA, 28, 0.15-0.03 mg per tab, Take 1 tablet by mouth every afternoon., Disp: , Rfl: ascorbic acid, vitamin C, (VITAMIN C) 500 mg tablet, Take 1 tablet by mouth once daily., Disp: , Rfl: Cholecalciferol, Vitamin D3, (VITAMIN D-3) 25 mcg (1,000 unit) chew, Take 1 tablet by mouth once daily., Disp: , Rfl: No facility-administered encounter medications on file as of 10/31/2024. Allergies: ALLERGIES No Known Allergies Vitals: BP 135/82 Pulse 74 Ht 5' 8 (1.73m) Wt 164 lb 10.9 oz (74.7kg) LMP 10/24/2024 BMI 25.05 kg/(m2). Review of Systems Constitutional: Negative. Respiratory: Negative. Cardiovascular: Negative. Gastrointestinal: Negative. Genitourinary: Negative. Objective Physical Exam Vitals reviewed. Constitutional: Appearance: Normal appearance. Cardiovascular: Rate and Rhythm: Normal rate and regular rhythm. Heart sounds: Normal heart sounds. Pulmonary: Effort: Pulmonary effort is normal. Breath sounds: Normal breath sounds. Abdominal: General: Bowel sounds are normal. There is no distension. Palpations: Abdomen is soft. Tenderness: There is no abdominal tenderness. Musculoskeletal: General: Normal range of motion. Neurological: Mental Status: She is alert and oriented to person, place, and time. Psychiatric: Mood and Affect: Mood normal. ASSESSMENT/PLAN: 1. Well adult exam - ICD9: V70.0, ICD10: Z00.00 (primary diagnosis) - Counseled on healthy diet and regular exercise - Follow up for annual exam in one year - COMPLETE BLOOD COUNT AND DIFFERENTIAL - COMPREHENSIVE METABOLIC PANEL - URINALYSIS, REFLEX MICROSCOPIC - VITAMIN D 25 HYDROXY - THYROID STIMULATING HORMONE 2. Encounter for immunization - ICD9: V03.89, ICD10: Z23 - TDAP VACCINE, AGE 7+ YR (ADACEL, BOOSTRIX) Radha Ibarra, KAE.LINING SEWER Allergies As of Date: 10/31/2024 (No Known Allergies) Date Reviewed: 10/31/2024 Reviewed by: Kasey Gallardo MA - Fully Assessed Reason for Visit: Establish Care [42] Primary Visit Diagnosis:Well adult exam [Z00.00] Other Visit Diagnosis:Encounter for immunization [Z23] Order(s):TDAP VACCINE, AGE 7+ YR (ADACEL, BOOSTRIX) [[id number]] Order #: [id number] COMPLETE BLOOD COUNT AND DIFFERENTIAL [SQCBCDIF] Order #: [id number] FUTURE COMPREHENSIVE METABOLIC PANEL [SQCMP] Order #: [id number] FUTURE URINALYSIS, REFLEX MICROSCOPIC [QIK0532] Order #: [id number] FUTURE VITAMIN D 25 HYDROXY [SQVITD] Order #: [id number] FUTURE THYROID STIMULATING HORMONE [SQTSH] Order #: [id number] FUTURE Prescriptions as of 10/31/2024 - ALTAVERA, 28, 0.15-0.03 mg per tab Take 1 tablet by mouth every afternoon. - ascorbic acid, vitamin C, (VITAMIN C) 500 mg tablet Take 1 tablet by mouth once daily. - Cholecalciferol, Vitamin D3, (VITAMIN D-3) 25 mcg (1,000 unit) chew Take 1 tablet by mouth once daily. Problem List As Of Date 10/31/2024 Noted Resolved PCOS (polycystic ovarian syndrome) [E28.2] Food sensitivity with gastrointestinal symptoms* Anxiety [F41.9] Disposition: Return in about 1 year (around 10/31/2025) for annual physical. Follow-up and Disposition History for Encounter Date (more content not included)... Normal [facility] Metrologist Office Visit Reporton 06-07-2024 Metrologist Office Visit Report [facility] 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 boulardii)) cholecalciferol (vitamin D3) 50 50 mcg PO DAILY 03/11/22 06/07/24 History mcg (2,000 unit) capsule afkkywc-zfpmwfe-lveciy orus capsule cap PO 03/11/22 06/07/24 History dietary supplement cap PO anxiety and depresson 04/27/23 06/07/24 History levonorgestrel 0.15 mg-ethinyl 1 tab PO DAILY #84 tabs 06/07/24 06/07/24 Rx estradiol 0.03 mg tablet Is last menstrual period known: Yes Last Menstrual Period: 05/12/24 Post menopausal: No Patient : No : No PFSH Medical History IBS (irritable bowel syndrome) Family History Grandmother Cancer unknown Unknown Diabetes Social History current occupational status: employed 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 Denies concerns. Wishes to continue OCP. Same sexual partner, getting in August. Last PAP: 2021 History of abnormal PAP: no Last mammogram: age 35-40 Female Reproductive History Last Menstrual Period: 05/12/24 Cycle Length: 21-35 Questions: metorrhagia: No, sexually active: Yes, dyspareunia: No and PCB: No ROS Const Constitutional: Denies fatigue, weight gain or weight loss Cardio Card: Denies chest pain Resp Resp: Denies cough or dyspnea on exertion GI GI: Denies abdominal pain, bloating, change in stool character, constipation or vomiting : Reports as per HPI; Denies difficulty voiding, pelvic pain, urinary frequency, urinary incontinence, urinary urgency, vaginal discharge or vaginal pruritus Exam Const General: cooperative, healthy appearing, no acute distress and well developed Orientation: alert, oriented to person and oriented to place HENMT Head: normal to inspection Neck Neck: normal visual inspection Thyroid: thyroid normal Lymphatic: no lymphadenopathy noted Chest Breast inspection: normal inspection of the breasts and normal inspection of the axillae Breast palpation: normal palpation of the breasts, normal palpation of the axillae and no axillary lymphadenopathy Resp Effort Inspection: normal respiratory effort GI Palpation: soft, no masses and nontender Rectal Exam: deferred External Female Exam: normal external appearance and normal appearance of the urethra Urethra: normal appearance of the urethra and normal palpation Speculum Exam - Vagina: normal appearance of the vagina and normal vaginal discharge Speculum Exam - Cervix: normal appearance of the cervix Bimanual Exam- Vagina Uterus: normal bimanual exam, uterine size normal, uterine shape normal and non-tender Bimanual Exam- Adnexa, other: normal adnexae, no masses, normal and non-tender Pelvic Support: normal Skin Hair: other (male pattern hair growth face, abdomen, thighs) Neuro General: patient alert and patient oriented x3 Psych Affect: normal affect Coding Level of Care Code Off vis,est,prev 18-39yrs Diagnoses Encounter for gynecological examination without abnormal finding Z01.419 Gynecological examination findings: abnormal findings ABSENT PCOS (polycystic ovarian syndrome) E28.2 Hirsutism L68.0 Assessment and Plan Assessment and Plan (1) Encounter for routine gynecological examination: Qualifiers: Gynecological examination findings: abno (more content not included)... Normal [facility] No Panel Informationon 03-11 POC Trichomonas (Rapid) Negative [facility] Work Phone: XR ANKLE MINIMUM 3 VIEWS RIG HTon 06-21-2019 XR ANKLE MINIMUM 3 VIEWS RIGHT ORIGINAL XR XR ANKLE MINIMUM 3 VIEWS RIGHT, Clinical Statement: pain, , trauma, pain Comparison: None Findings: There is no visualized acute fracture or dislocation. No radio-opaque foreign body or soft tissue gas is seen. Moderate lateral soft tissue swelling. IMPRESSION: No acute fracture seen. Interpreted By: Kobe Aguilar MD Preliminary Report By: Kobe Aguilar MD Electronically Signed By: Kobe Aguilar MD Dictated Date: 06/21/2019 8:48:13 AM Prelim Date: 06/21/2019 8:48:13 AM Sign Date: 06/21/2019 8:48:40 AM Normal [facility] ([place]) Vital Signs Date Time Vital Sign Value Performing Clinician Facility 07-19-2025 12:58-0400 Body height 172.[address] Susie Pascal MD Work Phone: [facility] 07-19-2025 12:58-0400 Body mass index (BMI) [Ratio] 22 kg/m2 Dr. Susie Pascal MD Work Phone: [facility] 07-19-2025 12:58-0400 Body weight 65.[address] Susie Pascal MD Work Phone: [facility] 07-19-2025 12:58-0400 Diastolic blood pressure 82 mm[Hg] Dr. Susie Pascal MD Work Phone: [facility] 07-19-2025 12:58-0400 Systolic blood pressure 134 mm[Hg] Dr. Susie Pascla MD Work Phone: [facility] 11-17-2024 03:30-0500 Diastolic blood pressure 71 mm[Hg] Manuela Grant MD Work Phone: [facility] 11-17-2024 03:30-0500 Heart rate 92 /min Manuela Grant MD Work Phone: [facility] 11-17-2024 03:30-0500 Respiratory rate 19 /min Manuela Grant MD Work Phone: [facility] 12-27-2024 03:30-0500 SaO2% (BldA) [Mass fraction] 98 % Manuela Grant MD Work Phone: [facility] [employer] 11-17-2024 03:30-0500 Systolic blood pressure 117 mm[Hg] [facility] 11-17-2024 02:24-0500 Body height 172.7 cm Manuela Grant MD [facility] 11-17-2024 02:24-0500 Body mass index (BMI) [Ratio] 26.15 kg/m2 Manuela Grant MD [facility] 11-17-2024 02:24-0500 Body weight 78.02 kg Manuela Grant MD [facility] [employer] 11-17-2024 02:13-0500 Body temperature 98.71 [degF] Manuela Grant MD [facility] 10-31-2024 18:57-0500 Body height 172.7 cm Radha Ibarra APRN.LINING SEWER Work Phone: [facility] 10-31-2024 18:57-0500 Body mass index (BMI) [Ratio] 25.04 kg/m2 Radha Ibarra APRN.LINING SEWER Work Phone: [facility] 10-31-2024 18:57-0500 Body weight 74.7 kg Radha Ibarra APRN.LINING SEWER Work Phone: [facility] 10-31-2024 18:57-0500 Diastolic blood pressure 82 mm[Hg] Radha Ibarra APRN.LINING SEWER Work Phone: [facility] 10-31-2024 18:57-0500 Heart rate 74 /min Radha Ibarra APRN.LINING SEWER Work Phone: [facility] 10-31-2024 18:57-0500 Systolic blood pressure 135 mm[Hg] Radha Ibarra APRN.CNP Work Phone: [facility] 03-11-2022 13:46-0400 Body height 172.[address] Susie Pascal Work Phone: [facility] Work Phone: 03-11-2022 13:46-0400 Body mass index (BMI) [Ratio] 21.9 kg/m2 Dr. Susie Pascal Work Phone: [facility] Work Phone: 03-11-2022 13:46-0400 Body weight 65.[address] Susie Pascal Work Phone: [facility] Work Phone: 03-11-2022 13:46-0400 Diastolic blood pressure 70 mm[Hg] Dr. Susie Pascal Work Phone: [facility] Work Phone: 03-11-2022 13:46-0400 Systolic blood pressure 136 mm[Hg] Dr. Susie Pascal Work Phone: [facility] Work Phone: Encounters Encounter Date Encounter Type Care Provider Facility Start: 07-19-2025 End: 07-19-[address] Susie Pascal MD Work Phone: [facility] Start: 07-19-2025 End: 07-19-2025 Patient encounter procedure Suzanne FRAZIER -[facility] Work Phone: Start: 07-19-2025 End: 07-19-2025 Patient encounter status Suzanne FRAZIER [facility] Start: 07-13-2025 End: 07-13-2025 ambulatory [facility] Start: 07-13-2025 End: 07-13-2025 Office outpatient visit 15 minutes Tej [facility] Work Phone: [facility] Comment on above: Sprain of right ankl e, unspecified ligament, initial encounter; Avulsion fracture of right talus, closed, initial encounter Start: 06-29-2025 End: 06-29-2025 Subsequent hospital visit by physician Magdalena Oliver X-Ray [address] [facility] Comment on above: Acute right ankle pa in Start: 06-29-2025 End: 06-29-2025 Office outpatient visit 15 minutes Tejlorne Aj DO Work Phone: [facility] Comment on above: Sprain of right ankl e, unspecified ligament, initial encounter (Primary Dx); Acute right ankle pain Start: 06-29-2025 End: 06-[facility] Start: 06-29-2025 End: 06-29-2025 Emergency department patient visit RADHA IBARRA Facility:[facility] Start: 05-31-2025 End: 05-31-2025 Postop follow up visit related to original px Tej P [place] DO Work Phone: [facility] Comment on above: Avulsion fracture of right talus, closed, initial encounter (Primary Dx); Sprain of right ankle, unspecified ligament, initial encounter Start: 05-31-2025 End: 05-31-2025 ambulatory [facility] Start: 05-03-2025 End: 05-03-2025 Subsequent hospital visit by physician Magdalena Oliver X-Ray [address] [facility] Comment on above: Avulsion fracture of right talus, closed, initial encounter Start: 05-03-2025 End: 05-03-2025 Postop follow up visit related to original px Tej P Jean Marie DO Work Phone: [facility] Comment on above: Avulsion fracture of right talus, closed, initial encounter Start: 05-03-2025 End: 05-03-2025 ambulatory [facility] Start: 04-19-2025 End: 04-19-2025 Subsequent hospital visit by physician Magdalena Oliver X-Ray [address] [facility] Comment on above: Acute right ankle pa in Start: 04-19-2025 End: 04-19-2025 Office outpatient new 45 minutes Tejlorne Aj Work Phone: [facility] Comment on above: Acute right ankle pa in; Avulsion fracture of right talus, closed, initial encounter; Sprain of right ankle, unspecified ligament, initial encounter Start: 04-19-2025 End: 04-19-2025 ambulatory TEJ Perez [facility] Start: 04-19-2025 End: 04-19-2025 ambulatory TEJ Perez [facility] Start: 11-17-2024 End: 11-17-2024 Emergency department patient visit Manuela Grant MD Work Phone: [facility] Comment on above: Vasovagal syncope (P rimary Dx) Start: 10-31-2024 End: 10-31-2024 ambulatory RADHA IBARRA Facility:[facility] Start: 10-31-2024 End: 10-31-2024 Patient encounter procedure Radha Ibarra APRN.LINING SEWER Work Phone: Internal Medicine Comment on above: Well adult exam (Bonnie james Dx); Encounter for immunization Start: 10-31-2024 End: 10-31-2024 Patient encounter status Radha Ibarra APRN.LINING SEWER Work Phone: [facility] Start: 06-07-2024 Encounter for gynecological examination (general) (routine) without abnormal findings Triny Patel NP [facility] Start: 06-07-2024 End: 06-07-2024 ambulatory Triny Patel NP Facility:[facility] [facility] Start: 03-11-2022 End: 03-11-[address] Susie Pascal Work Phone: [facility] [place] [facility] Start: 02-24-2019 End: 02-24-2019 Patient encounter procedure ARDEN VIERA [facility] Start: 02-09-2019 End: 02-09-2019 Patient encounter procedure ROSALINDA THAPA [facility] Start: 11-07-2018 End: 11-07-2018 Patient encounter procedure ROSALINDA THAPA [facility] Procedures Date Procedure Procedure Detail Performing Clinician Start: 11-17-2024 End: 11-17-2024 Urine test visual color cmprsn meths Manuela Grant MD Work Phone: Start: 11-17-2024 Radiologic exam ches t 2 views Manuela Grant MD Work Phone: Start: 11-17-2024 Ct abdomen & pelvis w/contrast material Manuela Grant MD Work Phone: Start: 11-17-2024 POCT VENOUS Manuela wayne MD Work Phone: Start: 11-17-2024 End: 11-17-2024 Basic metabolic panel calcium total Manuela Grant MD Work Phone: Start: 11-17-2024 Ecg routine ecg w/le ast 12 lds w/i&r Manuela Grant MD Work Phone: Plan of Treatment Date Care Activity Detail Author Start: 2050 Zoster Vaccines (1 of 2) Zoste r Vaccines (1 of 2) [facility] Start: 10-31-2034 DTaP/Tdap/Td vaccine (2 - Td or Tdap) DTaP/Tdap/Td vaccine (2 - Td or Tdap) [facility] Start: 10-31-2034 DTaP/Tdap/Td Vaccine s (8 - Td or Tdap) DTaP/Tdap/Td Vaccines (8 - Td or Tdap) [facility] Start: 10-31-2034 Urine microalbumin profile DTaP,Tdap,Td Vaccine (2 - Td or Tdap) [facility] Start: 11-01-2025 End: 11-01-2025 Patient encounter procedure 11/01/2025 2:40 PM EST Office Visit Internal Medicine [id number] [place], [place] [id number] Radha Ibarra APRN.LINING SEWER [address] [place] [address] Return in about 1 year (around 10/31/2025) for annual physical. Internal Medicine Comment on above: Return in about 1 ye ar (around 10/31/2025) for annual physical. Start: 10-31-2025 Covid-19 Vaccine ( season) Covid-19 Vaccine ( season) [facility] Comment on above: Postponed from 07/23 (Declined at this time) Start: 08-10-2025 End: 08-10-2025 Patient encounter procedure 08/10/2025 2:45 PM EDT Office Visit [facility] Building [address] [place] [address] [address] [place] [address] Tej Aj, DO [address] [facility] [address] [place] [address] [facility] Start: 07-31-2025 End: 07-31-2025 ambulatory 07/31/2025 1:45 PM EDT Evaluation [facility] [address] [place] [address] [address] [place] [address] Naun Alvarado, PT 9[address] [facility] [address] [place] [address] [facility] Medical [facility] Start: 07-23-2025 Influenza vaccination [facility] Start: 07-13-2025 End: 07-13-2025 Patient encounter procedure 07/13/2025 1:30 PM EDT Office Visit [facility] Building [address] [place] [address] [address] [place] [address] Tej Aj, DO [address] [facility] [address] [place] [address] [facility] Start: 06-29-2025 Subsequent hospital visit by physician 06/29/2025 3:15 PM EDT Hospital Encounter [facility] [address] [place] [address] [address] [place] [address] [facility] Comment on above: Acute right ankle pa in Start: 06-29-2025 End: 06-29-2026 XR Ankle - right 3 Views [facility] Service Ar ea Work Phone: Comment on above: Expected: 06/29/2025 , Expires: 06/29/2026 Once for 1 Occurrenc es starting 06/29/2025 until 06/29/2025 Start: 05-31-2025 End: 05-31-2025 Patient encounter procedure 05/31/2025 2:30 PM EDT Office Visit [facility] Medical Office [place] [id number] [address] Tej Aj, DO [address] [place] [address], [address] [address] [facility] Office Building Start: 05-03-2025 End: 05-03-2026 XR Ankle - right 3 Views [facility] Service Ar ea Work Phone: Comment on above: Expected: 05/03/2025 , Expires: 05/03/2026 Once for 1 Occurrenc es starting 05/03/2025 until 05/03/2025 Start: 05-03-2025 End: 05-03-2025 Patient encounter procedure 05/03/2025 1:15 PM EDT Office Visit [facility] Medical Office [place] [id number] [address] Tej Aj, DO [address]17 [facility], [address] [address] [facility] Office [facility] Start: 04-19-2025 End: 04-19-2026 XR Ankle - right 3 Views [facility] Service Ar ea Work Phone: Comment on above: Expected: 04/19/2025 , Expires: 04/19/2026 Start: 04-19-2025 End: 04-19-2026 XR Foot - right 3 Views [facility] Work Phone: Comment on above: Expected: 04/19/2025 , Expires: 04/19/2026 Once for 1 Occurrenc es starting 04/19/2025 until 04/19/2025 Start: 10-31-2024 End: 01-30-2025 25-hydroxyvitamin D3 [Mass/volume] in Serum or Plasma VITAMIN D 25 HYDROXY Lab Routine Well adult exam Expected: 10/31/2024, Expires: 01/30/2025 [facility] Comment on above: Expected: 10/31/2024 , Expires: 01/30/2025 Start: 10-31-2024 End: 01-30-2025 CBC W Auto Differential panel - Blood COMPLETE BLOOD COUNT AND DIFFERENTIAL Lab Routine Well adult exam Expected: 10/31/2024, Expires: 01/30/2025 [facility] Work Phone: Comment on above: Expected: 10/31/2024 , Expires: 01/30/2025 Start: 10-31-2024 End: 01-30-2025 Comprehensive metabolic 2000 panel - Serum or Plasma COMPREHENSIVE METABOLIC PANEL Lab Routine Well adult exam Expected: 10/31/2024, Expires: 01/30/2025 [facility] Comment on above: Expected: 10/31/2024 , Expires: 01/30/2025 Start: 10-31-2024 End: 01-30-2025 Thyrotropin [Units/volume] in Serum or Plasma THYROID STIMULATING HORMONE Lab Routine Well adult exam Expected: 10/31/2024, Expires: 01/30/2025 [facility] Comment on above: Expected: 10/31/2024 , Expires: 01/30/2025 Start: 10-31-2024 End: 01-30-2025 URINALYSIS, REFLEX MICROSCOPIC URINALYSIS, REFLEX MICROSCOPIC Lab Routine Well adult exam Expected: 10/31/2024, Expires: 01/30/2025 [facility] Comment on above: Expected: 10/31/2024 , Expires: 01/30/2025 Start: 07-23-2024 COVID-19 Vaccine () COVID-19 Vaccine () [facility] Start: 07-23-2024 COVID-19 Vaccine ( season) COVID-19 Vaccine ( season) [facility] Start: 06-22-2024 Influenza vaccination Flu vaccine (# 1) [facility] Start: 2021 Screening for malign ant neoplasm of cervix [facility] Start: 2019 Hepatitis B Vaccine (1 of 3 - 19+ 3-dose series) Hepatitis B Vaccine (1 of 3 - 19+ 3-dose series) [facility] Start: 2018 Depression Screening Depression Scre ening [facility] Start: 2018 Hepatitis C screening [facility] Start: 2018 HIV screening HIV Screening [facility] Start: 12-09-2017 Hepatitis A Vaccines (2 of 2 - 2-dose series) Hepatitis A Vaccines (2 of 2 - 2-dose series) [facility] Start: 2016 Meningococcal B Vacc ine: Consider Based On Risk (1 of 2 - Patient Seeks Protection) Meningococcal B Vaccine: Consider Based On Risk (1 of 2 - Patient Seeks Protection) [facility] Start: 2016 Screening for Chlamy mary ann trachomatis Chlamydia/GC screen [facility] Start: 2015 HIV screening HIV screen [facility] Start: 2015 HPV Vaccine (1 - 3-d ose series) HPV Vaccine (1 - 3-dose series) [facility] Start: 2015 HPV Vaccines (1 - 3- dose series) HPV Vaccines (1 - 3-dose series) [facility] Start: 2014 Peds To Adult Transi tion Annual Assessment Peds To Adult Transition Annual Assessment [facility] Start: 2013 Varicella vaccine (1 of 2 - 13+ 2-dose series) Varicella vaccine (1 of 2 - 13+ 2-dose series) [facility] Start: 2012 Depression Screen Depression Screen [facility] Start: 2012 Peds To Adult Transi tion Initial Discussion Peds To Adult Transition Initial Discussion [facility] Start: 2000 HIV screening HIV Screening [facility] Start: 2000 Lipid panel Lipid Panel [facility] Start: 2000 Yearly Adult Physical Yearly Adult P hysical [facility] EKG 12 Lead EKG 12 Lead ECG Routine 11/17/2024 2:30 AM EST [facility] End: 11-17-2024 Troponin I.cardiac [Mass/volume] in Serum or Plasma Troponin Lab STAT One Time for 1 Occurrences starting 11/17/2024 until 11/17/2024 [facility] Comment on above: One Time for 1 Occur rences starting 11/17/2024 until 11/17/2024 Immunizations Immunization Date Immunization Notes Care Provider Merna arango 10-31-2024 tetanus toxoid, redu ascencion diphtheria toxoid, and acellular pertussis vaccine, adsorbed aRdha Ibarra APRN.LINING SEWER Work Phone: [facility] 06-08-2017 hepatitis A and hepatitis B vaccine Tejlorne Aj DO Work Phone: [facility] Work Phone: Payers Date Payer Category Payer Unknown [employer] [id number] 2025 Worker's Compensation PATRICIA Quintero [facility] [employer] [id number] 2025 Unknown [id number] 2025 Unknown [id number] 2024 Self-pay [id number] 2023 Private Health Insurance [employer] POS [id number] 2023-Present [phone] [address] [place] [address] POS [id number] 2023 Managed Care (Private) [employer] [facility] [id number] 2023 Private Health Insurance [id number] 2000 Unknown [id number] 79.2.479 2000 Unknown [id number] [id number] 79.2.479 2000 Unknown [id number] [id number] 79.2.479 2000 Unknown [id number] [id number] 79.2.182 2000 Unknown [id number] [id number] 79.2.1246 2000 Unknown [id number] [id number] 79.2.1246 2000 Unknown [id number] 2.16.840.1.863823.3.5 79.2.1246 2000 Unknown [id number] 2.16.840.1.324976.3.5 79.2.1246 2000 Unknown [id number] [id number] 79.2.1244 2000 Unknown [id number] [id number] 79.2.1244 2000 Unknown [id number] [id number] 79.2.1244 2000 Unknown [id number] [id number] 79.2.1244 2000 Unknown [id number] 2.16.840.1.089220.3.5 79.2.1244 Private Health Insurance [facility] [id number] Unknown [id number] Unknown [id number] Unknown [id number] Social History Date Type Detail Facility Start: 03-11-2022 Tobacco smoking status TNIS Unknown if ever smoked [facility] Work Phone: Start: 2000 Sex Assigned At Female [facility] Work Phone: Start: 10-31-2024 End: 07-19-2025 Tobacco smoking status NHIS Never smoked tobacco [facility] Start: 10-31-2024 Tobacco use and exposure Smokeless tobacco non-user [facility] Start: 10-31-2024 Alcoholic beverage intake [facility] ([facility]) [facility] Start: 10-29-2024 End: 11-17-2024 History of Social function [facility] Start: 10-29-2024 End: 11-17-2024 [facility] Utilities [facility] Has the [employer], oil, or water [employer] threatened to shut off services in your home in past 12Mo No [facility] Start: 04-19-2025 How often do you get together with friends or relatives? Patient declined [facility] Do you belong to any clubs or organizations such as hoahaoism groups, unions, fraternal or athletic groups, or school groups? Yes [facility] Are you now , , , , never or living with a partner? [facility] How often to you hav e a drink containing alcohol? Never [facility] Do you feel stress - tense, restless, nervous, or anxious, or unable to sleep at night because your mind is troubled all the time - these days [OSQ] To some extent [facility] (I/We) worried jesus er (my/our) food would run out before (I/we) got money to buy more. Never true [facility] Start: 06-05-2024 Gender identity Identifies as female gender (finding) [facility] How often to you hav e a drink containing alcohol? Monthly or less [facility] How many standard dr inks containing alcohol do you have on a typical day? 1 or 2 [facility] Start: 2000 Sex assigned at Not on file [facility] Start: 04-09-2025 End: 05-03-2025 Exposure to SARS-CoV-2 (event) Not sure [facility] Clinical Notes 10-31-2024 to 07-13-2025 Tej Aj, DO - 07/13/2025 1:30 PM William Aj, DO - 06/29/2025 3:00 PM William Aj, DO - 05/31/2025 2:30 PM William Aj, DO - 05/03/2025 1:15 PM EDTAttachments Note Date & Type Note Facility 07-13-2025 History of Present illness Narrative Images from the original note were not included. Follow-Up Patient Visit Patient ID: Radha Hess is a 25 y.o. female. History of Present Illness 25-year-old female here for follow-up of right ankle sprain from 06/28/2025. Right Ankle Sprain - Last seen on 06/29/2025 for initial evaluation. - X-rays showed possible tiny avulsion at medial malleolus, no other acute fracture or dislocation. - Reports overall improvement but pain with weight-bearing, accompanied by bruising extending to toes. - Manages discomfort with elevation and ice, but finds it challenging. - Not driving due to injury. 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 Right ankle sprain: - Initial x-rays indicated potential minor avulsion at medial malleolus, no other acute fractures or dislocations - Patient reports soreness and bruising extending to toes, exacerbated by prolonged standing - Transition from boot to lace-up ankle brace over next 4-5 days - Initiate physical therapy to strengthen ankle and prevent future injuries, recommend attending sessions once or twice - Safe to drive without boot, only with lace-up ankle brace - If discomfort persists with brace, revert to boot - Continue icing and elevating ankle to reduce swelling and pain Follow-up: - Scheduled in 3-4 weeks, or sooner if necessary Orders Placed This Encounter Referral to Physical Therapy 1. Sprain of right ankle, unspecified ligament, initial encounter 2. Avulsion fracture of right talus, closed, initial encounter Procedures Physical Exam Musculoskeletal: Right ankle: Achilles tendon intact, bruising present, tenderness laterally and superiorly. Results Imaging - X-ray of right ankle: 06/29/2025, Possible tiny avulsion at medial malleolus. No other acute fracture or dislocation. At the conclusion of the visit there were no further questions by the patient/family regarding their plan of care. Patient was instructed to call or return with any issues, questions, or concerns regarding their injury and/or treatment plan described above. This medical note was created with the assistance of artificial intelligence (AI) for documentation purposes. The content has been reviewed and confirmed by the healthcare provider for accuracy and completeness. Patient consented to the use of audio recording and use of AI during their visit. 07/13/25 at 3:11 PM - Tej Aj DO Office: [phone] documented in this encounter [facility] Work Phone: 06-29-2025 History of Present illness Narrative Images from the original note were not included. Acute Injury Established Patient Visit Patient ID: Radha Hess is a 25 y.o. female History of Present Illness The patient is a 25-year-old female who presents with a new right ankle injury after falling down stairs last night. Right Ankle Injury - Seen at [facility]; no acute fracture/dislocation. - Repeat x-rays show possible tiny avulsion at medial malleolus, no other acute fracture/dislocation. - Previously treated for talar avulsion fracture a month ago, last seen 05/31/2025. - Pain similar to previous injury. Foot slipped while descending stairs at home, causing fall. - Initial intense pain, now subsided. - Still has boot from previous injury. - No Achilles tendon issues or proximal fibula pain. Initial injury end of March 2025, last seen six weeks post-injury on 06/01/2025. - Doing well, out of boot and brace for 3-4 weeks. - Walked 5K race post last visit. SOCIAL HISTORY Exercise: Walks 5K Assessment & Plan 1. Right ankle sprain: - Presents with right ankle sprain after falling down stairs last night - Repeat x-rays show possible tiny avulsion at medial malleolus, no other acute fracture/dislocation - Previously treated for talar avulsion fracture a month ago, last visit 05/31/2025 - Pain similar to previous injury Plan: - Placed in boot for 2 weeks - If no improvement, consider further x-rays - If better, transition to lace-up ankle brace - Discussed rest, avoiding exacerbating activities, monitoring pain/swelling, using ice/elevation - Advised to avoid weight-bearing, use crutches if necessary - Educated on signs of worsening symptoms warranting immediate medical attention Follow-up: - 2 weeks Assessment: Problem List Items Addressed This Visit None Visit Diagnoses Acute right ankle pain Relevant Orders XR ankle right 3+ views Diagnostics: Reviewed all relevant imaging including x-ray, MRI, CT, and US. Results Imaging - X-ray right ankle: 06/29/2025, possible tiny avulsion at medial malleolus, no other acute fracture/dislocation. Procedure: Procedures Physical Exam Musculoskeletal: Right ankle: Moderate to severe sprain, tenderness at medial malleolus, no proximal fibula pain, Achilles tendon intact. Orders Placed This Encounter XR ankle right 3+ views At the conclusion of the visit there were no further questions by the patient/family regarding their plan of care. Patient was instructed to call or return with any issues, questions, or concerns regarding their injury and/or treatment plan described above. 06/29/25 at 4:19 PM - Tej Aj DO Office: This note was prepared using voice recognition software. The details of this note are correct and have been reviewed, and corrected to the best of my ability. Some grammatical errors may persist related to the [employer] software. This medical note was created with the assistance of artificial intelligence (AI) for documentation purposes. The content has been reviewed and confirmed by the healthcare provider for accuracy and completeness. Patient consented to the use of audio recording and use of AI during their visit. documented in this encounter [facility] Work Phone: 06-28-2025 Note HNO ID: [id number] Author: LIZZETTE HANNAH RT(R) Service: Radiology Author Type: Teacher Adventure Education Type: Progress Notes Filed: 06/28/2025 21:56 Note Text: Radiology Service Progress Note PATIENT NAME: Radha Hess DATE OF SERVICE: June 28, 2025 TIME: 9:56 PM PATIENT IDENTITY VERIFICATION COMPLETED USING TWO (2) IDENTIFIERS: Name and Date of confirmed by patient verbally and Name and Date of confirmed by identification band. FALL SCREENING: Has the patient had 2 falls in the last year or 1 fall with injury or currently using an Ambulatory Assistive Device (Walker, Cane, Wheelchair, Crutches, etc.)? Emergency Room Patient: Screened in ED PATIENT GENDER DATA: Assigned female at . status: : No status: N/A PATIENT RELEVANT IMPLANT DATA REVIEWED: Not Applicable PATIENT PRESENTS WITH AN IMPLANTABLE OR ATTACHED LEACHER: No RADIOLOGY DEPARTMENT: General X-ray: Exam(s) Completed: Lower Extremity X-Ray(s): Ankle, Right and Foot, Right PERIPHERAL IV DATA: Not applicable SIGNED BY: RT Jamal(R) June 28, 2025 9:56 PM [facility] 05-31-2025 History of Present illness Narrative Images from the original note were not included. Follow-Up Patient Visit Patient ID: Radha Hess is a 25 y.o. female. History of Present Illness The patient is a 25-year-old female here for follow-up of her right moderate ankle sprain with a minor talar avulsion fracture. She was initially seen on 04/19/2025 and was last seen on 05/03/2025, approximately 6 weeks ago. At that time, transitioning her into a lace-up ankle brace was planned. No x-rays were done today as she is feeling better. She reports feeling well and has successfully transitioned out of the brace. She used the brace for over a week, primarily for long-distance travel or when at home. She has been without the brace or boot since last Wednesday. Over the past week, she walked 2.2 miles and plans to participate in a 5K event on Wednesday. She recently purchased new tennis shoes, which have been beneficial in supporting her ankle. She expresses satisfaction with her progress and reports no significant issues. The swelling and bruising have improved, and she experiences no pain upon palpation. However, she occasionally feels soreness, which she manages by resting. 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 Right moderate ankle sprain with minor talar avulsion fracture: Approximately 6 weeks post-injury with significant improvement. Successfully weaned off the brace and has been walking without it since last Wednesday. Walked 2.2 miles this past week and is training for a 5K event. No significant swelling or bruising, occasional soreness noted. Physical therapy is not deemed necessary due to satisfactory progress. Advised to use the ankle brace as needed, particularly when navigating uneven terrain. Encouraged to gradually resume regular activities over the next 1 to 2 weeks. New tennis shoes are providing good support for the ankle. No follow-up appointment needed unless issues arise. No orders of the defined types were placed in this encounter. 1. Avulsion fracture of right talus, closed, initial encounter 2. Sprain of right ankle, unspecified ligament, initial encounter Procedures Physical Exam Musculoskeletal: Right Ankle: No significant swelling or bruising. No pain on palpation. Full range of motion. Results At the conclusion of the visit there were no further questions by the patient/family regarding their plan of care. Patient was instructed to call or return with any issues, questions, or concerns regarding their injury and/or treatment plan described above. This medical note was created with the assistance of artificial intelligence (AI) for documentation purposes. The content has been reviewed and confirmed by the healthcare provider for accuracy and completeness. Patient consented to the use of audio recording and use of AI during their visit. 05/31/25 at 3:50 PM - Tje Aj DO Office: [phone] documented in this encounter [facility] Work Phone: 05-03-2025 History of Present illness Narrative Images from the original note were not included. Follow-Up Patient Visit Patient ID: Radha Hess is a 25 y.o. female. History of Present Illness The patient is a 25-year-old female here for follow-up of her right moderate ankle sprain with a minor talar avulsion fracture possible. She is approximately 2 weeks out. This is a worker's comp claim. 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 She reports a general improvement in her condition, although she continues to experience mild soreness. She has been able to bear weight on the affected foot without the aid of the boot. She was previously provided with a lace-up ankle brace during her last visit, which she brought with her today but has not yet utilized. 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 Right moderate ankle sprain with minor talar avulsion fracture: Transition from the boot to a lace-up ankle brace over the next week. Use the lace-up ankle brace for approximately 2 weeks, then gradually discontinue its use. If the condition does not improve, physical therapy will be considered. Follow-up Follow up in 4 weeks with no repeat x-rays if she is doing better Orders Placed This Encounter XR ankle right 3+ views 1. Avulsion fracture of right talus, closed, initial encounter Procedures Physical Exam Musculoskeletal: Right ankle: Minimal swelling, slight bruising, mild tenderness, stable, Achilles tendon intact with no palpable defect, full range of motion Results Imaging - X-ray of the right ankle: Tiny avulsion injury on the lateral talus. At the conclusion of the visit there were no further questions by the patient/family regarding their plan of care. Patient was instructed to call or return with any issues, questions, or concerns regarding their injury and/or treatment plan described above. This medical note was created with the assistance of artificial intelligence (AI) for documentation purposes. The content has been reviewed and confirmed by the healthcare provider for accuracy and completeness. Patient consented to the use of audio recording and use of AI during their visit. 05/03/25 at 3:10 PM - Tej Aj DO Office: [phone] documented in this encounter [facility] Work Phone: 04-19-2025 History of Present illness Narrative Images from the original note were not included. Acute Injury New Patient Visit Patient ID: Radha Hess is a 25 y.o. female. History of Present Illness The patient is a 25-year-old female presenting for a worker's compensation claim due to a right ankle injury sustained while jogging at work. Right Ankle Injury - Reports an inversion injury to her right ankle during a physical education class, accompanied by an audible pop - Post-injury, experienced nausea and near-syncope - Icing reduced swelling - Retains some toe mobility with pain - Reports tingling in her toes but no medial ankle pain Supplemental information: History of similar sprain in 2019. 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 Right ankle sprain: - Moderate ankle sprain with minor talar avulsion fracture - Expected recovery: 3-4 weeks - Immobilize with boot for 2 weeks, then evaluate progress - Repeat x-rays to confirm healing, transition to lace-up ankle brace - Rest, ice, elevation recommended - Boot provides compression, remove for sleeping, showering, skincare - Elevate and ice during rest - Use boot or brace based on comfort; if weight-bearing is not possible with brace, continue boot - Use Tylenol or ibuprofen for pain - Provide work note Follow up in 2 weeks Assessment: Problem List Items Addressed This Visit None Visit Diagnoses Acute right ankle pain Relevant Orders XR ankle right 3+ views XR foot right 3+ views Avulsion fracture of right talus, closed, initial encounter Relevant Orders Walking Boot Tall Ankle Brace, Lace Up or A60 Sprain of right ankle, unspecified ligament, initial encounter Relevant Orders Walking Boot Tall Ankle Brace, Lace Up or A60 Diagnostics: Reviewed all relevant imaging including x-ray, MRI, CT, and US. Results Imaging - X-ray of right ankle (04/19/2025): No obvious fracture or dislocation. Tiny ossific density of lateral talus suggests mild avulsion injury related to inversion injury. Procedure: Procedures Physical Exam - Musculoskeletal: - Right ankle: - Moderate swelling - Tenderness over lateral talus - No pain at proximal fibula, medial aspect, anteriorly, or heel - Intact Achilles tendon - Normal toes - Normal base of fifth metatarsal Orders Placed This Encounter Walking Boot Tall Ankle Brace, Lace Up or A60 XR ankle right 3+ views XR foot right 3+ views At the conclusion of the visit there were no further questions by the patient/family regarding their plan of care. Patient was instructed to call or return with any issues, questions, or concerns regarding their injury and/or treatment plan described above. 04/19/25 at 3:57 PM - Tej Aj DO Office: This note was prepared using voice recognition software. The details of this note are correct and have been reviewed, and corrected to the best of my ability. Some grammatical errors may persist related to the [employer] software. This medical note was created with the assistance of artificial intelligence (AI) for documentation purposes. The content has been reviewed and confirmed by the healthcare provider for accuracy and completeness. Patient consented to the use of audio recording and use of AI during their visit. documented in this encounter [facility] Work Phone: 11-17-2024 Hospital Discharge instructions Manuela Grant MD - 11/17/2024 4:12 AM EST You were seen in the ER today due to vasovagal syncope. Today, when you were walking to the bathroom, you started to become lightheaded and nauseous and sweaty and had tunnel vision and lost consciousness. This can occur when you have dehydration, when you get up too fast as well. EKG here did not reveal any abnormalities. Your troponin which is a heart enzyme was also normal. Your electrolytes and kidney function were normal. Your white blood cell count was slightly elevated at 15 although you are not anemic. Your blood glucose was 80 which is normal. Urine was negative. Chest x-ray did not reveal any signs of lung injury or pneumonia. CT scan of the abdomen/pelvis did not reveal any severe abnormal findings. The following attachments cannot be sent through Care Everywhere.Fainting (Hebrew)Lightheadedness or Faintness (Hebrew)Vasovagal Syncope (Hebrew)documented in this encounter [facility] 10-31-2024 Note HNO ID: [id number] Author: RADHA IBARRA APRN.[employer] [employer] Service: ? Author Type: Nurse Practitioner Type: Progress Notes Filed: 10/31/2024 19:52 Note Text: Subjective HPI Radha Quintero Kel is a 24 year old female who presents to [facility] care. She denies any concerns today. She follows with [facility] CO[facility]ATOR in [place] for PCOS, on OCP. She sees naturopathic doctor in [place] for anxiety and food sensitivities, usually sees them every 6 months, overdue for follow up. Routine labs and Tdap vaccine due, declines flu and COVID-19 vaccines. Patient will sign release of records form to get outside records sent to update health maintenance. PAST MEDICAL HISTORY Diagnosis Date Anxiety Food sensitivity with gastrointestinal symptoms dairy, eggs, beef, and gluten are primary (also goat's milk) PCOS (polycystic ovarian syndrome) Tonsil stone Tonsillitis PAST SURGICAL HISTORY Procedure Laterality Date TOOTH EXTRACTION FAMILY HISTORY Problem Relation Age of Onset Hypertension Father No Known Problems Sister No Known Problems Sister No Known Problems Brother No Known Problems Maternal Grandmother Diabetes Maternal Grandfather type 2 Colon Cancer Paternal Grandmother Lung Cancer Paternal Grandfather mets to brain Colon Cancer Paternal Uncle Hypertension Paternal Aunt Social History Tobacco Use Smoking status: Never Smokeless tobacco: Never Vaping Use Vaping status: Former Substance Use Topics Alcohol use: Not Currently Drug use: Never Current Medications: ALTAVERA, 28, 0.15-0.03 mg per tab, Take 1 tablet by mouth every afternoon., Disp: , Rfl: ascorbic acid, vitamin C, (VITAMIN C) 500 mg tablet, Take 1 tablet by mouth once daily., Disp: , Rfl: Cholecalciferol, Vitamin D3, (VITAMIN D-3) 25 mcg (1,000 unit) chew, Take 1 tablet by mouth once daily., Disp: , Rfl: No facility-administered encounter medications on file as of 10/31/2024. Allergies: ALLERGIES No Known Allergies Vitals: BP 135/82 Pulse 74 Ht 5' 8 (1.73m) Wt 164 lb 10.9 oz (74.7kg) LMP 10/24/2024 BMI 25.05 kg/(m2). Review of Systems Constitutional: Negative. Respiratory: Negative. Cardiovascular: Negative. Gastrointestinal: Negative. Genitourinary: Negative. Objective Physical Exam Vitals reviewed. Constitutional: Appearance: Normal appearance. Cardiovascular: Rate and Rhythm: Normal rate and regular rhythm. Heart sounds: Normal heart sounds. Pulmonary: Effort: Pulmonary effort is normal. Breath sounds: Normal breath sounds. Abdominal: General: Bowel sounds are normal. There is no distension. Palpations: Abdomen is soft. Tenderness: There is no abdominal tenderness. Musculoskeletal: General: Normal range of motion. Neurological: Mental Status: She is alert and oriented to person, place, and time. Psychiatric: Mood and Affect: Mood normal. ASSESSMENT/PLAN: 1. Well adult exam - ICD9: V70.0, ICD10: Z00.00 (primary diagnosis) - Counseled on healthy diet and regular exercise - Follow up for annual exam in one year - COMPLETE BLOOD COUNT AND DIFFERENTIAL - COMPREHENSIVE METABOLIC PANEL - URINALYSIS, REFLEX MICROSCOPIC - VITAMIN D 25 HYDROXY - THYROID STIMULATING HORMONE 2. Encounter for immunization - ICD9: V03.89, ICD10: Z23 - TDAP VACCINE, AGE 7+ YR (ADACEL, BOOSTRIX) Radha Ibarra APRN.[facility] 10-31-2024 History of Present illness Narrative Subjective HPI Radha Begum is a 24 year old female who presents to [facility] care. She denies any concerns today. She follows with H[facility] COORDINATOR in [place] for PCOS, on OCP. She sees naturopathic doctor in [place] for anxiety and food sensitivities, usually sees them every 6 months, overdue for follow up. Routine labs and Tdap vaccine due, declines flu and COVID-19 vaccines. Patient will sign release of records form to get outside records sent to update health maintenance. PAST MEDICAL HISTORY Diagnosis Date Anxiety Food sensitivity with gastrointestinal symptoms dairy, eggs, beef, and gluten are primary (also goat's milk) PCOS (polycystic ovarian syndrome) Tonsil stone Tonsillitis PAST SURGICAL HISTORY Procedure Laterality Date TOOTH EXTRACTION FAMILY HISTORY Problem Relation Age of Onset Hypertension Father No Known Problems Sister No Known Problems Sister No Known Problems Brother No Known Problems Maternal Grandmother Diabetes Maternal Grandfather type 2 Colon Cancer Paternal Grandmother Lung Cancer Paternal Grandfather mets to brain Colon Cancer Paternal Uncle Hypertension Paternal Aunt Social History Tobacco Use Smoking status: Never Smokeless tobacco: Never Vaping Use Vaping status: Former Substance Use Topics Alcohol use: Not Currently Drug use: Never Current Medications: ALTAVERA, 28, 0.15-0.03 mg per tab, Take 1 tablet by mouth every afternoon., Disp: , Rfl: ascorbic acid, vitamin C, (VITAMIN C) 500 mg tablet, Take 1 tablet by mouth once daily., Disp: , Rfl: Cholecalciferol, Vitamin D3, (VITAMIN D-3) 25 mcg (1,000 unit) chew, Take 1 tablet by mouth once daily., Disp: , Rfl: No facility-administered encounter medications on file as of 10/31/2024. Allergies: ALLERGIES No Known Allergies Vitals: BP 135/82 Pulse 74 Ht 5' 8 (1.73m) Wt 164 lb 10.9 oz (74.7kg) LMP 10/24/2024 BMI 25.05 kg/(m^2). Review of Systems Constitutional: Negative. Respiratory: Negative. Cardiovascular: Negative. Gastrointestinal: Negative. Genitourinary: Negative. Objective Physical Exam Vitals reviewed. Constitutional: Appearance: Normal appearance. Cardiovascular: Rate and Rhythm: Normal rate and regular rhythm. Heart sounds: Normal heart sounds. Pulmonary: Effort: Pulmonary effort is normal. Breath sounds: Normal breath sounds. Abdominal: General: Bowel sounds are normal. There is no distension. Palpations: Abdomen is soft. Tenderness: There is no abdominal tenderness. Musculoskeletal: General: Normal range of motion. Neurological: Mental Status: She is alert and oriented to person, place, and time. Psychiatric: Mood and Affect: Mood normal. ASSESSMENT/PLAN: 1. Well adult exam - ICD9: V70.0, ICD10: Z00.00 (primary diagnosis) - Counseled on healthy diet and regular exercise - Follow up for annual exam in one year - COMPLETE BLOOD COUNT AND DIFFERENTIAL - COMPREHENSIVE METABOLIC PANEL - URINALYSIS, REFLEX MICROSCOPIC - VITAMIN D 25 HYDROXY - THYROID STIMULATING HORMONE 2. Encounter for immunization - ICD9: V03.89, ICD10: Z23 - TDAP VACCINE, AGE 7+ YR (ADACEL, BOOSTRIX) Radha Ibarra APRN.LINING SEWER documented in this encounter [facility] Evaluation note Diagnosis Onset Date Hirsutism acute PCOS (polycystic ovarian syndrome) acute Possible exposure to STD non eactive Encounter for routine gyneco logical examination noneactive [facility] Work Phone: Evaluation note* Diagnosis Well adult exam- Primary Routine general medical examination at a health care facility Encounter for immunization Need for other specified prophylactic vaccination against single bacterial disease [facility] Vasovagal syncope- Primary Syncope and collapse [facility] Acute right ankle pain Avulsion fracture of right talus, closed, initial encounter Sprain of right ankle, unspecified ligament, initial encounter documented in this encounter [facility] Work Phone: Evaluation note* Diagnosis Acute right ankle pain documented in this encounter [facility] Work Phone: Evaluation note* Diagnosis Avulsion fracture of right talus, closed, initial encounter documented in this encounter [facility] Work Phone: Evaluation note* Diagnosis Avulsion fracture of right talus, closed, initial encounter documented in this encounter [facility] Work Phone: Evaluation note* Diagnosis Avulsion fracture of right talus, closed, initial encounter- Primary Sprain of right ankle, unspecified ligament, initial encounter documented in this encounter [facility] Work Phone: Evaluation note* Diagnosis Sprain of right ankle, unspecified ligament, initial encounter- Primary Acute right ankle pain Acute right ankle pain documented in this encounter [facility] Work Phone: Evaluation note* Diagnosis Acute right ankle pain documented in this encounter [facility] Work Phone: Evaluation note* Diagnosis Sprain of right ankle, unspecified ligament, initial encounter Avulsion fracture of right talus, closed, initial encounter documented in this encounter [facility] Work Phone: Evaluation note* Diagnosis Onset Date Resolution Status Admit Date Encounter for routine gynecological examination noneactive July 19, 2025 3:38pm [facility] Work Phone: Reason for referral (narrative)[facility] for [facility] Reason for visit Narrative* Imaging (Routine) - Authorized Specialty Diagnoses / Procedures Referred By Contac t Referred To Contact Radiology Diagnoses Acute right ankle pain Procedures XR foot right 3+ views Tej Aj P, DO [address] [address] Phone: tel: fax: Referral ID Status Reason Start Date Expiration Date Visits Requested Visits Authorized [id number] Authorized Perform Procedure 04/19/2025 04/19/2026 1 1 [facility] Work Phone: Reason for visit Narrative* Imaging (Routine) - Authorized Specialty Diagnoses / Procedures Referred By Contac t Referred To Contact Radiology Diagnoses Avulsion fracture of right talus, closed, initial encounter Procedures XR ankle right 3+ views Tej Aj P, DO [address] [facility], [address] [address] Phone: tel: fax: Referral ID Status Reason Start Date Expiration Date Visits Requested Visits Authorized [id number] Authorized Perform Procedure 05/03/2025 05/03/2026 1 1 [facility] Work Phone: Reason for visit Narrative* Imaging (Routine) - Authorized Specialty Diagnoses / Procedures Referred By Contac t Referred To Contact Radiology Diagnoses Acute right ankle pain Procedures XR ankle right 3+ views Tej Aj P, DO [address] [facility], [address] [place] [address] Phone: tel: fax: Referral ID Status Reason Start Date Expiration Date Visits Requested Visits Authorized [id number] Authorized Perform Procedure 06/29/2025 06/29/2026 1 1 [facility] Work Phone: Summary Purpose Family History Relationship Condition Age at Onset Recorded Date/T heidi grandmother Malignant neoplasm Unknown Not Specified Diabetes mellitus Unknown Relationship Condition Age at Onset Recorded Date/T heidi grandmother Malignant neoplasm Unknown unrelated friend Diabetes mellitus Unknown Advance Directives No Advanced Directives Records FoundNo Advanced Directives Records FoundNo Advanced Directives Records FoundNo Advanced Directives Records FoundNo Advanced Directives Records FoundNo Advanced Directives Records FoundNo Advanced Directives Records FoundNo Advanced Directives Records Found Chief Complaint and Reason for Visit Chief Complaint Annual (HEDIS COORDINATOR) Reason for Visit Hirsutism PCOS (polycystic ovarian syndrome) Possible exposure to STD Encounter for routine gynecological examination Chief Complaint Admit Date Annual (HEDIS COORDINATOR) July 19, 2025 3: 38pm Reason for Visit Admit Date Encounter for routine gynecological exam ination July 19, 2025 3:38pm Additional Source Comments INFORMATION SOURCE (unrecogn ized section and content) DATE CREATED AUTHOR 02/26/2019 [facility] DATE CREATED AUTHOR AUTHOR'S ORGANIZ ATION 07/21/2019 [facility] ([place]) DATE CREATED AUTHOR AUTHOR'S ORGANIZ ATION 06/11/2024 [facility] DATE CREATED AUTHOR AUTHOR'S ORGANIZ ATION 11/04/2024 [facility] DATE CREATED AUTHOR AUTHOR'S ORGANIZ ATION 11/18/2024 [facility] DATE CREATED AUTHOR AUTHOR'S ORGANIZ ATION 07/01/2025 [facility] DATE CREATED AUTHOR AUTHOR'S ORGANIZ ATION 07/02/2025 [facility] DATE CREATED AUTHOR AUTHOR'S ORGANIZ ATION 07/15/2025 [facility] Ambulatory Goals (unrecognized section and content) Goals may be documented in a n alternate sectionGoals may be documented in an alternate section Source Comments (unrecognize d section and content) In the event this informatio n is protected by the Federal Confidentiality of Alcohol and Drug Abuse Patient Records regulations: The Federal rules restrict any use of the information to criminally investigate or prosecute any alcohol or drug abuse patient.[facility] Reason for Visit (unrecogniz ed section and content) Reason Comments Establish Care Reason Comments Loss of Consciousness Syncopal episode Reason Comments Pain Reason Comments Follow-up Care Teams (unrecognized sec tion and content) School Clerk Relationship Specialty Start Date End Date Radha Ibarra APRN.LINING SEWER [address] [place] [address] PCP - General Internal Medicine 10/31/24 School Clerk Relationship Specialty Start Date End Date Radha Ibarra [address] [place] [address] PCP - General 11/17/24 School Clerk Relationship Specialty Start Date End Date Radha Ibarra APRN-LINING SEWER [address] [place] [address] PCP - General Family Medicine 04/19/25 School Clerk Relationship Specialty Start Date End Date Radha Ibarra APRN-LINING SEWER [address] [place] [address] PCP - General Family Medicine 04/19/25 School Clerk Relationship Specialty Start Date End Date Radha Ibarra [facility] [place] [address] [place] [address] PCP - General Family Medicine 04/19/25 School Clerk Relationship Specialty Start Date End Date Radha Ibarra [facility] [place] [address] [place] [address] PCP - General Family Medicine 04/19/25 School Clerk Relationship Specialty Start Date End Date Radha IbarraKAE gregorio-[place] [address] [place] [address] PCP - General Family Medicine 04/19/25 Team Status: Active Member Role/Relationship Status Dates Dr. Susie Pascal MD Primary Care Provider Active Team Status: Inactive Member Role/Relationship Status Dates Dr. Susie Pascal MD Primary Care Provider Active Start: July 19, 2025 End: July 19, 2025 Dr. Susie Pascal MD Referring Provider Active Start: July 19, 2025 End: July 19, 2025 KARIN Rivera Attending Provider Active Start: July 19, 2025 End: July 19, 2025 Ordered Prescriptions (unrec ognized section and content) Prescription Sig Dispensed Refills Start Date Da ondansetron (ZOFRAN-ODT) 4 MG disintegrating tablet Take 1 tablet by mouth 3 times daily as needed for Nausea or Vomiting 21 tablet 11/17/2024 Scheduled Active and Recently Administ ered Medications (unrecognized section and content) Medication Order 11/15/2024 11/16/2024 11/17/2024 ondansetron (ZOFRAN) injection 4 mg (COMPLETED) 4 mg, IntraVENous, ONCE, 1 dose, On Wed11/17/24 at 5834 0920 (Given - Provid er: Leslie Saunders RN) PRN Medication Order 11/15/2024 11/16/2024 11/17/2024 iopamidol (ISOVUE-370) 76 % injection 75 mL (COMPLETED) 75 mL, IntraVENous, IMG ONCE PRN, 1 dose, Starting on Wed11/17/24 at 0346, Until Wed11/17/24 at 0351, Other 0351 (Given - Provid er: Crystal Hairston) FOR RECORDS PERTAINING TO PATIENTS WHO ARE OR HAVE BEEN ENROLLED IN A CHEMICAL DEPENDENCY/SUBSTANCEABUSE PROGRAM, SOME INFORMATION MAY BE OMITTED. This clinical summary was aggregated from multiple sources. Caution should be exercised in using it in the provision of clinical care. This summary normalizes information from multiple sources, and as a consequence, information in this document may materially change the coding, format and clinical context of patient data. In addition, data may be omitted in some cases. CLINICAL DECISIONS SHOULD BE BASED ON THE PRIMARY CLINICAL RECORDS. [employer] provides no warranty or guarantee of the accuracy or completeness of information in this document.
== END | disposition home or self-care (01) ==
LOC: LABSPEC 16:12
PROVIDERS: PCP Pediatrics; Referring Provider Nurse Practitioner Family; Visit Provider Nurse Practitioner Family
DX: Z12.4 Encounter for screening for malignant neoplasm of cervix (principal)
CPT/HCPCS: 88175; G0145